=== PATIENT | female | born 2000 | race Caucasian/White ===

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

== ENCOUNTER 2018-03-26 12:27 | Emergency (ER) | payer BC, OTHER ==
[~2018-03-26] VITALS: Ht 170.2 cm; Wt 59.0 kg
--- OUTSIDE RECORDS SUMMARY | 2018-03-26 12:31 | XMS REPORT ---
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 Drug Allergy Lexapro 20 Mg Tablet rash Non Drug Allergy Problems Problem Type Condition Code Onset Dates Condition Status Problem Migraine with aura, without mention of intractable migraine without mention of status migrainosus 346.00 Active Assessment Nasal congestion R09.81 Active Problem Anxiety state, unspecified 300.00 Active Problem Encounter for long-term (current) use of other medications V58.69 Active Problem Asthma 493.90 Active Problem Chest pain, unspecified 786.50 Active 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 Problem Esophageal reflux 530.81 Active Problem 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 Medications Medication Code System Code Instructions Start Date End Date Status Dosage Flonase Allergy Relief [facility] [place] [address]-27 50 MCG/ACT Nasally twice a day prn nasal sx Jan 23, 2016 1 spray in each nostril BusPIRone HCl [facility] [place] [id number] 5 MG TAKE 1 TABLET BY ORAL ROUTE 2 TIMES PER DAY BusPIRone HCl [facility] [place] [address]-03 10 MG Orally Three times a day August 11, 2014 1 tablet Procedures Procedure Coding System Code Date Office Visit, Est Pt., Level 3 CPT-4 14410 Jan 23, 2016 Vital Signs Date/Time: Jan 23, 2016 Cardiac Monitoring Heart Rate 82 bpm BMIPercentile 51.95 % Weight 134.8 lbs Height 67 in BMI 21.11 Index Oximetry 99 % Blood Pressure Diastolic 68 mmHg Blood Pressure Systolic 118 mmHg Wt Percentile 71.45 % Ht Percentile 86.78 % Results No Known Results Summary Purpose eClinicalWorks Submission
--- OUTSIDE RECORDS SUMMARY | 2018-03-26 12:31 | XMS REPORT | Continuity of Care Document ---
Author Author [facility] Organization [facility] Address Unknown Phone Unavailable Care Team Providers Care Lock Tender Chief Operator Name Role Phone ELIZABETH LEIVA MD PP Insurance Providers Payer Name Policy Number Subscriber Name Relationship [employer] [facility] [id number] Denis Holland Self / Same As Patient Problems No Known Problems or Medical conditions. 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 Ref. Range Urine Bacteria November 06, 2007 2:39am Few H - Urine Bilirubin November 06, 2007 2:39am Negative - Urine Casts November 06, 2007 2:39am None - Urine Clarity November 06, 2007 2:39am Clear - Urine Color November 06, 2007 2:39am Yellow - Urine Crystals November 06, 2007 2:39am None - Urine Culture Indicated November 06, 2007 2:39am Yes - Urine Glucose (UA) November 06, 2007 2:39am Negative - Urine Ketones November 06, 2007 2:39am Negative - Urine Leukocyte Esterase November 06, 2007 2:39am 1+ H - Urine Mucus November 06, 2007 2:39am Negative - Urine Nitrite November 06, 2007 2:39am Negative - Urine Protein November 06, 2007 2:39am Negative - Urine RBC November 06, 2007 2:39am None / HPF - Urine Specific Roberts November 06, 2007 2:39am 1.020 - Urine Urobilinogen November 06, 2007 2:39am Normal MG/DL - Urine WBC November 06, 2007 2:39am 5-10 / HPF H - Urine pH November 06, 2007 2:39am 6.5 - Lab Scanned Report October 16, 2010 12:40pm LAB Reports [id number] - Urine RBC (Auto) November 06, 2007 2:39am Negative - Procedures Procedure Code Date Urine Culture 11/06/07 Encounters Encounter Location Date/Time Departed Emergency Room [facility] 12 :00am
--- OUTSIDE RECORDS SUMMARY | 2018-03-26 12:32 | XMS REPORT | Continuity of Care Document ---
Author Author [facility] Organization [facility] Address Unknown Phone Unavailable Care Team Providers Care Ledger Clerk Name Role Phone PATEL BOYD PA-C PP Insurance Providers Payer Name Policy Number Subscriber Name [facility] [id number] Joellen Holland Self / Same As Patient Problems No Known Problems or Medical conditions. 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 Encounters Encounter Location Date/Time Departed [facility] 12 :00am
--- OUTSIDE RECORDS SUMMARY | 2018-03-26 12:32 | XMS REPORT | Continuity of Care Document ---
Author Author [facility] Address Unknown Phone Unavailable Allergies Active Description Code Type Severity Reaction Onset Reported/Identified Relationship to Patient Clinical Status Yes sudafed OA 04/06/2009 Yes sudafed OA N/A N/ A 04/06/2009 Yes pseudoephedrine [id number] Drug Allergy Mild RECOMMENDED TO 06/17/2009 Yes Lexapro 20 mg tablet Drug Allergy N/A N/A 06/22/2014 Medications There is no data. Problems Date Dx Coded Attending Type Code Diagnosis Diagnosed By 01/17/2008 692.9 DERMATITIS CONTACT UNSPECIFIED 01/17/2008 ELIZABETH LEIVA MD 692.9 DERMATITIS CONTACT UNSPECIFIED 01/17/2008 692.9 DERMATITIS CONTACT UNSPECIFIED 01/17/2008 692.9 DERMATITIS CONTACT UNSPECIFIED 01/17/2008 692.9 DERMATITIS CONTACT UNSPECIFIED 01/17/2008 692.9 DERMATITIS CONTACT UNSPECIFIED 01/17/2008 692.9 DERMATITIS CONTACT UNSPECIFIED 01/17/2008 SWAPNA MILLER DO 692.9 DERMATITIS CONTACT UNSPECIFIED 01/17/2008 LUKE MIRANDA APRN 692.9 DERMATITIS CONTACT UNSPECIFIED 01/17/2008 ELIZABETH LEIVA MD 692.9 DERMATITIS CONTACT UNSPECIFIED 01/17/2008 ELIZABETH LEIVA MD 692.9 DERMATITIS CONTACT UNSPECIFIED 01/17/2008 CALI JAQUEZ ELIZABETH 692.9 DERMATITIS CONTACT UNSPECIFIED 01/17/2008 CALI JAQUEZ ELIZABETH 692.9 DERMATITIS CONTACT UNSPECIFIED 01/17/2008 ELIZABETH LEIVA MD 692.9 DERMATITIS CONTACT UNSPECIFIED 04/06/2009 709.9 SKIN LESIONS 04/06/2009 ELIZABETH LEIVA MD 709.9 SKIN LESIONS 04/06/2009 709.9 SKIN LESIONS 04/06/2009 709.9 SKIN LESIONS 04/06/2009 709.9 SKIN LESIONS 04/06/2009 709.9 SKIN LESIONS 04/06/2009 709.9 SKIN LESIONS 04/06/2009 SWAPNA MILLER DO 709.9 SKIN LESIONS 04/06/2009 LUKE MIRANDA APRN 709.9 SKIN LESIONS 04/06/2009 CALI JAQUEZ, ELIZABETH 709.9 SKIN LESIONS 04/06/2009 CALI JAQUEZ, ELIZABETH 709.9 SKIN LESIONS 04/06/2009 CALI JAQUEZ, ELIZABETH 709.9 SKIN LESIONS 04/06/2009 CALI JAQUEZ, ELIZABETH 709.9 SKIN LESIONS 04/06/2009 CALI JAQUEZ, ELIZABETH 709.9 SKIN LESIONS 09/11/2011 216.9 BENIGN NEOPLASM OF SKIN SITE UNSPECIFIED 09/11/2011 346.00 MIGRAINE WITH AURA WITHOUT MENTION OF INTRACTABLE MIGRAINE WITHOUT MENTION OF STATUS MIGRAINOSUS 09/11/2011 ELIZABETH LEIVA MD 216.9 BENIGN NEOPLASM OF SKIN SITE UNSPECIFIED 09/11/2011 ELIZABETH LEIVA MD 346.00 MIGRAINE WITH AURA WITHOUT MENTION OF INTRACTABLE MIGRAINE WITHOUT MENTION OF STATUS MIGRAINOSUS 09/11/2011 216.9 BENIGN NEOPLASM OF SKIN SITE UNSPECIFIED 09/11/2011 346.00 MIGRAINE WITH AURA WITHOUT MENTION OF INTRACTABLE MIGRAINE WITHOUT MENTION OF STATUS MIGRAINOSUS 09/11/2011 216.9 BENIGN NEOPLASM OF SKIN SITE UNSPECIFIED 09/11/2011 346.00 MIGRAINE WITH AURA WITHOUT MENTION OF INTRACTABLE MIGRAINE WITHOUT MENTION OF STATUS MIGRAINOSUS 09/11/2011 216.9 BENIGN NEOPLASM OF SKIN SITE UNSPECIFIED 09/11/2011 346.00 MIGRAINE WITH AURA WITHOUT MENTION OF INTRACTABLE MIGRAINE WITHOUT MENTION OF STATUS MIGRAINOSUS 09/11/2011 216.9 BENIGN NEOPLASM OF SKIN SITE UNSPECIFIED 09/11/2011 346.00 MIGRAINE WITH AURA WITHOUT MENTION OF INTRACTABLE MIGRAINE WITHOUT MENTION OF STATUS MIGRAINOSUS 09/11/2011 216.9 BENIGN NEOPLASM OF SKIN SITE UNSPECIFIED 09/11/2011 346.00 MIGRAINE WITH AURA WITHOUT MENTION OF INTRACTABLE MIGRAINE WITHOUT MENTION OF STATUS MIGRAINOSUS 09/11/2011 SWAPNA MILLER DO 216.9 BENIGN NEOPLASM OF SKIN SITE UNSPECIFIED 09/11/2011 SWAPNA MILLER DO 346.00 MIGRAINE WITH AURA WITHOUT MENTION OF INTRACTABLE MIGRAINE WITHOUT MENTION OF STATUS MIGRAINOSUS 09/11/2011 LUKE MIRANDA APRN 216.9 BENIGN NEOPLASM OF SKIN SITE UNSPECIFIED 09/11/2011 LUKE MIRANDA APRN 346.00 MIGRAINE WITH AURA WITHOUT MENTION OF INTRACTABLE MIGRAINE WITHOUT MENTION OF STATUS MIGRAINOSUS 09/11/2011 ELIZABETH LEIVA MD 216.9 BENIGN NEOPLASM OF SKIN SITE UNSPECIFIED 09/11/2011 ELIZABETH LEIVA MD 346.00 MIGRAINE WITH AURA WITHOUT MENTION OF INTRACTABLE MIGRAINE WITHOUT MENTION OF STATUS MIGRAINOSUS 09/11/2011 ELIZABETH LEIVA MD 216.9 BENIGN NEOPLASM OF SKIN SITE UNSPECIFIED 09/11/2011 ELIZABETH LEIVA MD 346.00 MIGRAINE WITH AURA WITHOUT MENTION OF INTRACTABLE MIGRAINE WITHOUT MENTION OF STATUS MIGRAINOSUS 09/11/2011 ELIZABETH LEIVA MD 216.9 BENIGN NEOPLASM OF SKIN SITE UNSPECIFIED 09/11/2011 ELIZABETH LEIVA MD 346.00 MIGRAINE WITH AURA WITHOUT MENTION OF INTRACTABLE MIGRAINE WITHOUT MENTION OF STATUS MIGRAINOSUS 09/11/2011 ELIZABETH LEIVA MD 216.9 BENIGN NEOPLASM OF SKIN SITE UNSPECIFIED 09/11/2011 ELIZABETH LEIVA MD 346.00 MIGRAINE WITH AURA WITHOUT MENTION OF INTRACTABLE MIGRAINE WITHOUT MENTION OF STATUS MIGRAINOSUS 09/11/2011 ELIZABETH LEIVA MD 216.9 BENIGN NEOPLASM OF SKIN SITE UNSPECIFIED 09/11/2011 ELIZABETH LEIVA MD 346.00 MIGRAINE WITH AURA WITHOUT MENTION OF INTRACTABLE MIGRAINE WITHOUT MENTION OF STATUS MIGRAINOSUS 05/13/2012 ELIZABETH LEIVA MD 426.7 ANOMALOUS ATRIOVENTRICULAR EXCITATION 05/13/2012 ELIZABETH LEIVA MD 465.9 UPPER RESPIRATORY INFECTION 05/13/2012 ELIZABETH LEIVA MD 786.50 chest pain or discomfort 05/13/2012 426.7 ANOMALOUS ATRIOVENTRICULAR EXCITATION 05/13/2012 465.9 UPPER RESPIRATORY INFECTION 05/13/2012 786.50 chest pain or discomfort 05/13/2012 426.7 ANOMALOUS ATRIOVENTRICULAR EXCITATION 05/13/2012 465.9 UPPER RESPIRATORY INFECTION 05/13/2012 786.50 chest pain or discomfort 05/13/2012 426.7 ANOMALOUS ATRIOVENTRICULAR EXCITATION 05/13/2012 465.9 UPPER RESPIRATORY INFECTION 05/13/2012 786.50 chest pain or discomfort 05/13/2012 426.7 ANOMALOUS ATRIOVENTRICULAR EXCITATION 05/13/2012 465.9 UPPER RESPIRATORY INFECTION 05/13/2012 786.50 chest pain or discomfort 05/13/2012 426.7 ANOMALOUS ATRIOVENTRICULAR EXCITATION 05/13/2012 465.9 UPPER RESPIRATORY INFECTION 05/13/2012 786.50 chest pain or discomfort 05/13/2012 MILLER DO, SWAPNA K 426.7 ANOMALOUS ATRIOVENTRICULAR EXCITATION 05/13/2012 MILLER DO, SWAPNA K 465.9 UPPER RESPIRATORY INFECTION 05/13/2012 MILLER DO, SWAPNA K 786.50 chest pain or discomfort 05/13/2012 LUKE MIRANDA APRN T 426.7 ANOMALOUS ATRIOVENTRICULAR EXCITATION 05/13/2012 LUKE MIRANDA APRN T 465.9 UPPER RESPIRATORY INFECTION 05/13/2012 LUKE MIRANDA APRN T 786.50 chest pain or discomfort 05/13/2012 ELIZABETH LEIVA MD 426.7 ANOMALOUS ATRIOVENTRICULAR EXCITATION 05/13/2012 ELIZABETH LEIVA MD 465.9 UPPER RESPIRATORY INFECTION 05/13/2012 ELIZABETH LEIVA MD 786.50 chest pain or discomfort 05/13/2012 ELIZABETH LEIVA MD 426.7 ANOMALOUS ATRIOVENTRICULAR EXCITATION 05/13/2012 RAH LEIVA MDISTA 465.9 UPPER RESPIRATORY INFECTION 05/13/2012 ELIZABETH LEIVA MD 786.50 chest pain or discomfort 05/13/2012 ELIZABETH LEIVA MD 426.7 ANOMALOUS ATRIOVENTRICULAR EXCITATION 05/13/2012 CALI JAQUEZ ELIZABETH 465.9 UPPER RESPIRATORY INFECTION 05/13/2012 ELIZABETH LEIVA MD 786.50 chest pain or discomfort 05/13/2012 ELIZABETH LEIVA MD 426.7 ANOMALOUS ATRIOVENTRICULAR EXCITATION 05/13/2012 CALI JAQUEZ ELIZABETH 465.9 UPPER RESPIRATORY INFECTION 05/13/2012 ELIZABETH LEIVA MD 786.50 chest pain or discomfort 05/13/2012 ELIZABETH LEIVA MD 426.7 ANOMALOUS ATRIOVENTRICULAR EXCITATION 05/13/2012 RAH LEIVA MDISTA 465.9 UPPER RESPIRATORY INFECTION 05/13/2012 CALI JAQUEZ ELIZABETH 786.50 chest pain or discomfort 07/07/2012 719.46 PAIN IN JOINT INVOLVING LOWER LEG 07/07/2012 754.61 CONGENITAL PES PLANUS 07/07/2012 719.46 PAIN IN JOINT INVOLVING LOWER LEG 07/07/2012 754.61 CONGENITAL PES PLANUS 07/07/2012 719.46 PAIN IN JOINT INVOLVING LOWER LEG 07/07/2012 754.61 CONGENITAL PES PLANUS 07/07/2012 719.46 PAIN IN JOINT INVOLVING LOWER LEG 07/07/2012 754.61 CONGENITAL PES PLANUS 07/07/2012 719.46 PAIN IN JOINT INVOLVING LOWER LEG 07/07/2012 754.61 CONGENITAL PES PLANUS 07/07/2012 SWAPNA MILLER DO 719.46 PAIN IN JOINT INVOLVING LOWER LEG 07/07/2012 SWAPNA MILLER DO 754.61 CONGENITAL PES PLANUS 07/07/2012 LUKE MIRANDA APRN 719.46 PAIN IN JOINT INVOLVING LOWER LEG 07/07/2012 LUKE MIRANDA APRN 754.61 CONGENITAL PES PLANUS 07/07/2012 ELIZABETH LEIVA MD 719.46 PAIN IN JOINT INVOLVING LOWER LEG 07/07/2012 CALI JAQUEZ ELIZABETH 754.61 CONGENITAL PES PLANUS 07/07/2012 ELIZABETH LEIVA MD 719.46 PAIN IN JOINT INVOLVING LOWER LEG 07/07/2012 RAH LEIVA MDISTA 754.61 CONGENITAL PES PLANUS 07/07/2012 CALI JAQUEZ ELIZABETH 719.46 PAIN IN JOINT INVOLVING LOWER LEG 07/07/2012 CALI JAQUEZ ELIZABETH 754.61 CONGENITAL PES PLANUS 07/07/2012 CALI JAQUEZ ELIZABETH 719.46 PAIN IN JOINT INVOLVING LOWER LEG 07/07/2012 CALI JAQUEZ ELIZABETH 754.61 CONGENITAL PES PLANUS 07/07/2012 CALI JAQUEZ ELIZABETH 719.46 PAIN IN JOINT INVOLVING LOWER LEG 07/07/2012 CALI JAQUEZ ELIZABETH 754.61 CONGENITAL PES PLANUS 09/17/2012 840.9 SPRAIN OF UNSPECIFIED SITE OF SHOULDER AND UPPER ARM 09/17/2012 840.9 SPRAIN OF UNSPECIFIED SITE OF SHOULDER AND UPPER ARM 09/17/2012 840.9 SPRAIN OF UNSPECIFIED SITE OF SHOULDER AND UPPER ARM 09/17/2012 840.9 SPRAIN OF UNSPECIFIED SITE OF SHOULDER AND UPPER ARM 09/17/2012 SWAPNA MILLER DO 840.9 SPRAIN OF UNSPECIFIED SITE OF SHOULDER AND UPPER ARM 09/17/2012 LUKE MIRANDA APRN 840.9 SPRAIN OF UNSPECIFIED SITE OF SHOULDER AND UPPER ARM 09/17/2012 ELIZABETH LEIVA MD 840.9 SPRAIN OF UNSPECIFIED SITE OF SHOULDER AND UPPER ARM 09/17/2012 ELIZABETH LEIVA MD 840.9 SPRAIN OF UNSPECIFIED SITE OF SHOULDER AND UPPER ARM 09/17/2012 ELIZABETH LEIVA MD 840.9 SPRAIN OF UNSPECIFIED SITE OF SHOULDER AND UPPER ARM 09/17/2012 ELIZABETH LEIVA MD 840.9 SPRAIN OF UNSPECIFIED SITE OF SHOULDER AND UPPER ARM 09/17/2012 ELIZABETH LEIVA MD 840.9 SPRAIN OF UNSPECIFIED SITE OF SHOULDER AND UPPER ARM 11/04/2012 530.81 ESOPHAGEAL REFLUX 11/04/2012 780.2 PRESYNCOPE SYNDROME 11/04/2012 530.81 ESOPHAGEAL REFLUX 11/04/2012 780.2 PRESYNCOPE SYNDROME 11/04/2012 SWAPNA MILLER DO 530.81 ESOPHAGEAL REFLUX 11/04/2012 SWAPNA MILLER DO 780.2 PRESYNCOPE SYNDROME 11/04/2012 LUKE MIRANDA APRN 530.81 ESOPHAGEAL REFLUX 11/04/2012 LUKE MIRANDA APRN 780.2 PRESYNCOPE SYNDROME 11/04/2012 ELIZABETH LEIVA MD 530.81 ESOPHAGEAL REFLUX 11/04/2012 ELIZABETH LEIVA MD 780.2 PRESYNCOPE SYNDROME 11/04/2012 ELIZABETH LEIVA MD 530.81 ESOPHAGEAL REFLUX 11/04/2012 ELIZABETH LEIVA MD 780.2 PRESYNCOPE SYNDROME 11/04/2012 ELIZABETH LEIVA MD 530.81 ESOPHAGEAL REFLUX 11/04/2012 ELIZABETH LEIVA MD 780.2 PRESYNCOPE SYNDROME 11/04/2012 ELIZABETH LEIVA MD 530.81 ESOPHAGEAL REFLUX 11/04/2012 ELIZABETH LEIVA MD 780.2 PRESYNCOPE SYNDROME 11/04/2012 ELIZABETH LEIVA MD 530.81 ESOPHAGEAL REFLUX 11/04/2012 ELIZABETH LEIVA MD 780.2 PRESYNCOPE SYNDROME 02/28/2013 SWAPNA MILLER DO V04.81 FLU SHOT 02/28/2013 LUKE MIRANDA APRN V04.81 FLU SHOT 02/28/2013 CALI JAQUEZ ELIZABETH V04.81 FLU SHOT 02/28/2013 CALI JAQUEZ ELIZABETH V04.81 FLU SHOT 02/28/2013 RAH LEIVA MDISTA V04.81 FLU SHOT 02/28/2013 ELIZABETH LEIVA MD V04.81 FLU SHOT 02/28/2013 CALI JAQUEZ, ELIZABETH V04.81 FLU SHOT 02/28/2014 CALI JAQUEZ, ELIZABETH 300.00 ANXIETY STATE UNSPECIFIED 02/28/2014 CALI JAQUEZ, ELIZABETH 780.79 OTHER MALAISE AND FATIGUE 02/28/2014 CALI JAQUEZ ELIZABETH V58.69 MEDICATION HIGH RISK 02/28/2014 CALI JAQUEZ, ELIZABETH 300.00 ANXIETY STATE UNSPECIFIED 02/28/2014 CALI JAQUEZ, ELIZABETH 780.79 OTHER MALAISE AND FATIGUE 02/28/2014 CALI JAQUEZ, ELIZABETH V58.69 MEDICATION HIGH RISK 02/28/2014 CALI JAQUEZ, ELIZABETH 300.00 ANXIETY STATE UNSPECIFIED 02/28/2014 CALI JAQUEZ, ELIZABETH 780.79 OTHER MALAISE AND FATIGUE 02/28/2014 CALI JAQUEZ, ELIZABETH V58.69 MEDICATION HIGH RISK 02/28/2014 CALI JAQUEZ, ELIZABETH 300.00 ANXIETY STATE UNSPECIFIED 02/28/2014 CALI JAQUEZ ELIZABETH 780.79 OTHER MALAISE AND FATIGUE 02/28/2014 CALI JAQUEZ, ELIZABETH V58.69 MEDICATION HIGH RISK 02/28/2014 CALI JAQUEZ, ELIZABETH 300.00 ANXIETY STATE UNSPECIFIED 02/28/2014 CALI JAQUEZ, ELIZABETH 780.79 OTHER MALAISE AND FATIGUE 02/28/2014 CALI JAQUEZ, ELIZABETH V58.69 MEDICATION HIGH RISK 05/25/2014 CALI JAQUEZ, ELIZABETH 696.3 PITYRIASIS ROSEA 05/25/2014 CALI JAQUEZ, ELIZABETH 696.3 PITYRIASIS ROSEA 05/25/2014 CALI JAQUEZ, ELIZABETH 696.3 PITYRIASIS ROSEA 06/22/2014 CALI JAQUEZ, ELIZABETH 695.10 ERYTHEMA MULTIFORME UNSPECIFIED 06/22/2014 CALI JAQUEZ, ELIZABETH 695.10 ERYTHEMA MULTIFORME UNSPECIFIED 06/22/2014 CALI JAQUEZ, ELIZABETH 695.10 ERYTHEMA MULTIFORME UNSPECIFIED 07/06/2014 CALI JAQUEZ, ELIZABETH 701.4 KELOID SCAR 07/06/2014 CALI JAQUEZ, ELIZABETH 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.4 KELOID SCAR 07/19/2014 CALI JAQUEZ, ELIZABETH 599.0 URINARY TRACT INFECTION 07/19/2014 CALI JAQUEZ, ELIZABETH 788.1 DYSURIA 09/08/2017 BENNY ROCK MD Ot E86.9 VOLUME DEPLETION, UNSPECIFIED 09/08/2017 BENNY ROCK MD, Ot R11.0 NAUSEA 09/08/2017 BENNY ROCK MD Ot R42 DIZZINESS AND GIDDINESS 09/08/2017 BENNY ROCK MD Ot R51 HEADACHE 10/02/2017 BENNY ROCK MD, Ot E86.9 VOLUME DEPLETION, UNSPECIFIED 10/02/2017 BENNY ROCK MD, Ot R11.0 NAUSEA 10/02/2017 BENNY ROCK MD, Ot R42 DIZZINESS AND GIDDINESS 10/02/2017 BENNY ROCK MD, Ot R51 HEADACHE Procedures Code Description Performed By Performed On Physical Physical Therapy, [facility] 07/08/2012 47822 XRAY SHOULDER RIGHT COMP 2 VIEWS 09/17/2012 40322 ROUTINE VENIPUNCTURE 11/04/2012 84981 BMP 11/04/2012 1798748 COMPLETE BLOOD COUNT NO DIFF (CBC Result) 11/04/2012 08598 TSH 11/04/2012 62397 T4 FREE 11/04/2012 86440 DIFFERENTIAL WBC COUNT (CBC DIFF RESULT) 11/05/2012 95554 UA W/MICROSCOPY 11/05/2012 73891 CBC W/MANUAL DIF (order) 11/07/2012 64350 UA W/MICROSCOPY 11/23/2012 PRO/CRE URINE PROTEIN TO CREATNINE RATIO 11/23/2012 83750 SKIN TAG REM 1-15 04/20/2013 37151 ROUTINE VENIPUNCTURE 02/28/2014 77044 STREP A (IN-HOUSE) 02/28/2014 69140 MONO TEST (IN-HOUSE) 02/28/2014 62389 CBC NO 5 PART DIFFERENTIAL 03/01/2014 44219 IRON SERUM 03/01/2014 11047 IRON BNDNG CAP 03/01/2014 30864 T4 FREE 03/01/2014 33509 FERRITIN 03/01/2014 05733 TSH 03/01/2014 IRGROUP IRON GROUP (Iron,TIBC, Ferritin) 03/04/2014 34862 UA W/ CULTURE IF INDICATED 07/19/2014 GC/CHLAM GC/CHLAMYDIA PROBE/URINE 07/19/2014 Results Test Result Range Urine beta human chorionic gonadotropin (hCG) measurement - 09/08/17 16:25 Urine beta human chorionic gonadotropin (hCG) measurement NEGATIVE NEGATIVE Complete urinalysis with reflex to culture - 09/08/17 16:25 Urine color determination YELLOW NRG Urine clarity determination CLEAR NRG Urine pH measurement by test strip 6 5-9 Specific gravity of urine by test strip 1.015 1.016- 1.022 Urine protein assay by test strip, semi-quantitative NEGATIVE NEGATIVE Urine glucose detection by automated test strip NEGATIVE NEGATIVE Erythrocytes detection in urine sediment by light microscopy 5+ NEGATIVE Urine ketones detection by automated test strip NEGATIVE NEGATIVE Urine nitrite detection by test strip NEGATIVE NEGATIVE Urine total bilirubin detection by test strip NEGATIVE NEGATIVE Urine urobilinogen measurement by automated test strip (mass/volume) NORMAL NORMAL Urine leukocyte esterase detection by dipstick NEGATIVE NEGATIVE Automated urine sediment erythrocyte count by microscopy (number/high power field) [HPF] NRG Automated urine sediment leukocyte count by microscopy (number/high power field ) NONE NRG Bacteria detection in urine sediment by light microscopy NONE NRG Squamous epithelial cells detection in urine sediment by light microscopy 2-5 NRG Crystals detection in urine sediment by light microscopy NONE NRG Casts detection in urine sediment by light microscopy NONE NRG Mucus detection in urine sediment by light microscopy NEGATIVE NRG Complete urinalysis with reflex to culture NO NRG Complete blood count (CBC) with automated white blood cell (WBC) differential - 09/08/17 16:40 Blood leukocytes automated count (number/volume) 7.7 10*3/uL 4.3-11.0 Blood erythrocytes automated count (number/volume) 4.15 10*6/uL 4.35-5.85 Venous blood hemoglobin measurement (mass/volume) 13.2 g/dL 11.5-16.0 Blood hematocrit (volume fraction) 37 % 35-52 Automated erythrocyte mean corpuscular volume 90 [foz_us] 80-99 Automated erythrocyte mean corpuscular hemoglobin (mass per erythrocyte) 32 pg 25-34 Automated erythrocyte mean corpuscular hemoglobin concentration measurement ( mass/volume) 36 g/dL 32-36 Automated erythrocyte distribution width ratio 12.5 % 10.0-14.5 Automated blood platelet count (count/volume) 179 10*3/uL 130-400 Automated blood platelet mean volume measurement 11.0 [foz_us] 7.4-10.4 Automated blood neutrophils/100 leukocytes 63 % 42-75 Automated blood lymphocytes/100 leukocytes 28 % 12-44 Blood monocytes/100 leukocytes 6 % 0-12 Automated blood eosinophils/100 leukocytes 2 % 0-10 Automated blood basophils/100 leukocytes 0 % 0-10 Blood neutrophils automated count (number/volume) 4.9 10*3 1.8-7.8 Blood lymphocytes automated count (number/volume) 2.2 10*3 1.0-4.0 Blood monocytes automated count (number/volume) 0.5 10*3 0.0-1.0 Automated eosinophil count 0.2 10*3/uL 0.0-0.3 Automated blood basophil count (count/volume) 0.0 10*3/uL 0.0-0.1 Comprehensive metabolic panel - 09/08/17 16:40 Serum or plasma sodium measurement (moles/volume) 140 mmol/L 135-145 Serum or plasma potassium measurement (moles/volume) 3.7 mmol/L 3.6-5.0 Serum or plasma chloride measurement (moles/volume) 109 mmol/L 98-107 Carbon dioxide 22 mmol/L 21-32 Serum or plasma anion gap determination (moles/volume) 9 mmol/L 5-14 Serum or plasma urea nitrogen measurement (mass/volume) 13 mg/dL 7-18 Serum or plasma creatinine measurement (mass/volume) 0.77 mg/dL 0.60-1.30 Serum or plasma urea nitrogen/creatinine mass ratio 17 NRG Serum or plasma creatinine measurement with calculation of estimated glomerular filtration rate > NRG Serum or plasma glucose measurement (mass/volume) 86 mg/dL 70-105 Serum or plasma calcium measurement (mass/volume) 9.1 mg/dL 8.5-10.1 Serum or plasma total bilirubin measurement (mass/volume) 0.5 mg/dL 0.1-1.0 Serum or plasma alkaline phosphatase measurement (enzymatic activity/volume) 58 U/L 60-350 Serum or plasma aspartate aminotransferase measurement (enzymatic activity/ volume) 15 U/L 5-34 Serum or plasma alanine aminotransferase measurement (enzymatic activity/volume ) 13 U/L 0-55 Serum or plasma protein measurement (mass/volume) 6.9 g/dL 6.4-8.2 Serum or plasma albumin measurement (mass/volume) 4.1 g/dL 3.2-4.5 Serum or plasma creatine kinase measurement (enzymatic activity/volume) - 09/08 16:40 Serum or plasma creatine kinase measurement (enzymatic activity/volume) 56 U/L 29-168 Lipase - 09/08/17 16:40 Lipase 41 U/L 8-78 Encounters ACCT No. Visit Date/Time Discharge Status Pt. Type Provider Facility Loc./Unit Complaint [id number] 07/19/2014 15:13:00 07/19/2014 23:59:59 CLS Outpatient ELIZABETH LEIVA MD [id number] 07/06/2014 16:00:00 07/06/2014 23:59:59 CLS Outpatient ELIZABETH LEIVA MD [id number] 06/22/2014 15:18:00 06/22/2014 23:59:59 CLS Outpatient ELIZABETH LEIVA MD [id number] 03/21/2014 16:30:00 03/21/2014 23:59:59 CLS Outpatient ELIZABETH LEIVA MD [id number] 02/28/2014 16:43:00 02/28/2014 23:59:59 CLS Outpatient ELIZABETH LEIVA MD [id number] 04/20/2013 16:12:00 04/20/2013 23:59:59 CLS Outpatient LUKE MIRANDA APRN [id number] 02/28/2013 17:21:00 02/28/2013 23:59:59 CLS Outpatient SWAPNA MILLER DO [id number] 05/13/2012 16:42:00 05/13/2012 23:59:59 CLS Outpatient ELIZABETH LEIVA MD [id number] 10/15/2011 14:31:00 10/15/2011 23:59:59 CLS Outpatient [id number] 11/22/2012 16:38:00 Document Registration [id number] 11/04/2012 11:13:00 Document Registration [id number] 09/21/2012 09:17:00 Document Registration [id number] 09/17/2012 16:24:00 Document Registration [id number] 07/07/2012 16:43:00 Document Registration [id number] 04/13/2012 19:22:54 RECURRING [id number] 09/08/2017 16:08:00 09/08/2017 17:45:00 DIS Outpatient PRANAV JAQUEZ, BENNY Castaneda [facility] SDC VOLUME DEPLETION,COUGH, NAUSEA,DOWELL [id number] 12/03/2012 16:21:00 12/09/2012 13:46:00 DIS Outpatient [id number] 09/17/2012 17:42:00 09/17/2012 23:59:59 CLS Outpatient [id number] 08/19/2012 15:17:00 08/19/2012 15:57:00 DIS Outpatient
[2018-03-26] MEDS ORDERED: CITA20TA9 (12:55)
[2018-03-26] MEDS ORDERED: NORE0.3543 (12:55)
[2018-03-26] MEDS ORDERED: MUPI22OI2 (12:55)
[2018-03-26] MEDS ORDERED: SULF-222 (12:55)
--- NOTE | 2018-03-26 13:07 | ED Pediatric Illness ---
HPI-Pediatric Illness General Chief Complaint: Abdominal/GI Problems Stated Complaint: VOMITING;ABD PAIN Nursing Triage Note: ARRIVED VIA AMB TO ROOM 08 WITH MOM. COMPLAINS OF ABD PAIN AND LOWER BACK PAIN STARTING YESTERDAY. Source: patient Exam Limitations: no limitations History of Present Illness Date Seen by Provider: Mar 26, 2018 Time Seen by Provider: 13:05 Initial Comments To ER with complaints of lower back pain, epigastric abdominal pain nausea vomiting and chills without measured fever for about 24 hours. She's been on an antibiotic (unknown which one) for about a week for an "staph infection of her lip". 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) Patient Home Medication List Home Medication List Reviewed: Yes Review of Systems Review of Systems Constitutional: see HPI EENTM: see HPI Respiratory: no symptoms reported Cardiovascular: no symptoms reported Gastrointestinal: abdominal pain; No constipation, No diarrhea; nausea, vomiting Genitourinary: no symptoms reported LMP: Mar 19, 2018 Musculoskeletal: no symptoms reported Skin: no symptoms reported Psychiatric/Neurological: No Symptoms Reported Endocrine: No Symptoms Reported PMH-Pediatrics Physical Abuse Screen: No Recent Foreign Travel: No Contact w/other who traveled: No Recent Infectious Disease Expo: No Seasonal Allergies: No Behavioral Health Disorders: Anxiety, Depression Physical Exam-Pediatric Physical Exam Vital Signs - First Documented 03/26/18 12:45 Temp 98.7 Pulse 89 Resp 16 B/P (MAP) 125/81 Capillary Refill : Height, Weight, BMI Height: 5'7.00" Weight: 130lbs. 0.0oz. 58.051539le; 14.06 BMI Method:Stated General Appearance: no acute distress, see HPI, active HENT: head inspection normal, fontanelle closed/normal Neck: non-tender, full range of motion Respiratory: no respiratory distress, no accessory muscle use Gastrointestinal: normal bowel sounds, non tender, soft Neurologic/Psychiatric: alert, normal mood/affect, oriented x 3 Skin: normal color, warm/dry Progress/Results/Core Measures Results/Orders Lab Results Laboratory Tests Test 03/26/18 13:00 03/26/18 13:10 03/26/18 15:03 Range/Units White Blood Count 5.4 4.3-11.0 10^3/uL Red Blood Count 4.80 4.35-5.85 10^6/uL Hemoglobin 14.7 11.5-16.0 G/DL Hematocrit 43 35-52 % Mean Corpuscular Volume 90 80-99 FL Mean Corpuscular Hemoglobin 31 25-34 PG Mean Corpuscular Hemoglobin Concent 34 32-36 G/DL Red Cell Distribution Width 12.4 10.0-14.5 % Platelet Count 186 130-400 10^3/uL Mean Platelet Volume 10.5 H 7.4-10.4 FL Neutrophils (%) (Auto) 75 42-75 % Lymphocytes (%) (Auto) 16 12-44 % Monocytes (%) (Auto) 9 0-12 % Eosinophils (%) (Auto) 0 0-10 % Basophils (%) (Auto) 0 0-10 % Neutrophils # (Auto) 4.1 1.8-7.8 X 10^3 Lymphocytes # (Auto) 0.9 L 1.0-4.0 X 10^3 Monocytes # (Auto) 0.5 0.0-1.0 X 10^3 Eosinophils # (Auto) 0.0 0.0-0.3 10^3/uL Basophils # (Auto) 0.0 0.0-0.1 10^3/uL Sodium Level 138 135-145 MMOL/L Potassium Level 3.5 L 3.6-5.0 MMOL/L Chloride Level 103 98-107 MMOL/L Carbon Dioxide Level 23 21-32 MMOL/L Anion Gap 12 5-14 MMOL/L Blood Urea Nitrogen 13 7-18 MG/DL Creatinine 0.80 0.60-1.30 MG/DL Estimat Glomerular Filtration Rate > 60 BUN/Creatinine Ratio 16 Glucose Level 90 70-105 MG/DL Calcium Level 9.5 8.5-10.1 MG/DL Corrected Calcium 9.2 8.5-10.1 MG/DL Total Bilirubin 0.8 0.1-1.0 MG/DL Aspartate Amino Transf (AST/SGOT) 18 5-34 U/L Alanine Aminotransferase (ALT/SGPT) 17 0-55 U/L Alkaline Phosphatase 69 40-136 U/L Total Protein 7.6 6.4-8.2 GM/DL Albumin 4.4 3.2-4.5 GM/DL Lipase 18 8-78 U/L Serum Test, Qualitative NEGATIVE NEGATIVE My Orders Orders - FLORENCIA MEREDITH APRN Cbc With Automated Diff (03/26/18 13:04) Comprehensive Metabolic Panel (03/26/18 13:04) Lipase (03/26/18 13:04) Ua Culture If Indicated (03/26/18 13:04) Hcg,Qualitative Serum (03/26/18 13:04) Iv Heplock-Insert (Order) (03/26/18 13:04) Hyoscyamine Sl Tablet (Levsin Sl Tablet) (03/26/18 13:15) Antacid Suspension (Mylanta Suspension (03/26/18 13:15) Lidocaine 2% Viscous 15 Ml (Xylocaine Vi (03/26/18 13:15) Ketorolac Injection (Toradol Injection) (03/26/18 13:15) Ns Iv 1000 Ml (Sodium Chloride 0.9%) (03/26/18 14:15) Medications Given in ED Current Medications Medications Dose Ordered Sig/Katia Route Start Time Stop Time Status Last Admin Dose Admin Al Hydrox/Mg Hydrox/Simethicone 30 ml ONCE ONCE PO 03/26/18 13:15 03/26/18 13:16 DC 03/26/18 13:24 30 ML Hyoscyamine Sulfate 0.125 mg ONCE ONCE PO 03/26/18 13:15 03/26/18 13:16 DC 03/26/18 13:23 0.125 MG Ketorolac Tromethamine 15 mg ONCE ONCE IVP 03/26/18 13:15 03/26/18 13:16 DC 03/26/18 13:23 15 MG Lidocaine HCl 10 ml ONCE ONCE PO 03/26/18 13:15 03/26/18 13:16 DC 03/26/18 13:27 10 ML Vital Signs/I&O 03/26/18 12:45 Temp 98.7 Pulse 89 Resp 16 B/P (MAP) 125/81 Departure Communication (Admissions) 1418- was improved with GI cocktail Toradol and Levsin. Still unable to urinate side ordered a liter of saline. Impression Primary Impression: Gastritis Qualified Codes: K29.00 - Acute gastritis without bleeding Disposition: 01 HOME, SELF-CARE Condition: Stable Departure-Patient Inst. Referrals: BENNY ROCK MD (PCP/Family) Primary Care Physician Patient Instructions: Gastritis (DC) Add. Discharge Instructions: 1. Take the aspirin for the next few days while you are finishing up your antibiotics. You may also use [id number] Maalox to help coat the stomach as needed for discomfort. Your labs are normal and it seems most likely that you 're discomfort is related to side effect of the antibiotic but it could also be a viral stomach bug as we've seen quite a bit of that going around. All discharge instructions reviewed with patient and/or family. Voiced understanding. Scripts Famotidine (Pepcid) 20 Mg Tablet 20 MG PO BID, #10 TAB Prov: FLORENCIA MEREDITH APRN 03/26/18 FLORENCIA MEREDITH APRN Mar 26, 2018 13:07
[2018-03-26] MEDS ORDERED: LIDOCAINE 2% VISCOUS 15 ML UDC PO ONE (13:15)
[2018-03-26] MEDS ORDERED: ANTACID SUSP 30 ML UDC (MYLANTA) PO ONE (13:15)
[2018-03-26] MEDS ORDERED: KETOROLAC 30 MG/ML VIAL IVP ONE (13:15)
[2018-03-26] MEDS ORDERED: HYOSCYAMINE 0.125 MG (LEVSIN) TAB PO ONE (13:15)
[2018-03-26 13:16] LABS: BASOPHILS % (AUTO) 0 % (0-10); EOSINOPHILS % (AUTO) 0 % (0-10); HEMATOCRIT 43 % (35-52); HEMOGLOBIN 14.7 G/DL (11.5-16.0); LYMPHOCYTES # (AUTO) 0.9 X 10^3 (1.0-4.0); LYMPHOCYTES % (AUTO) 16 % (12-44); MEAN CORPUSCULAR HEMOGLOBIN 31 PG (25-34); MEAN CORPUSCULAR HGB CONC 34 G/DL (32-36); MEAN CORPUSCULAR VOLUME 90 FL (80-99); MEAN PLATELET VOLUME 10.5 FL (7.4-10.4); MONOCYTES # (AUTO) 0.5 X 10^3 (0.0-1.0); MONOCYTES % (AUTO) 9 % (0-12); NEUTROPHILS # (AUTO) 4.1 X 10^3 (1.8-7.8); NEUTROPHILS % (AUTO) 75 % (42-75); PLATELET COUNT 186 10^3/uL (130-400); RED CELL DISTRIBUTION WIDTH 12.4 % (10.0-14.5); WHITE BLOOD COUNT 5.4 10^3/uL (4.3-11.0)
[2018-03-26 13:27] LABS: ALANINE AMINOTRANSFERASE 17 U/L (0-55); ALBUMIN 4.4 GM/DL (3.2-4.5); ALKALINE PHOSPHATASE 69 U/L (40-136); BILIRUBIN,TOTAL 0.8 MG/DL (0.1-1.0); BUN/CREATININE RATIO 16; CALCIUM 9.5 MG/DL (8.5-10.1); CARBON DIOXIDE 23 MMOL/L (21-32); CHLORIDE 103 MMOL/L (98-107); GFR ESTIMATED > 60; GLUCOSE 90 MG/DL (70-105); LIPASE 18 U/L (8-78); POTASSIUM 3.5 MMOL/L (3.6-5.0); SODIUM 138 MMOL/L (135-145); TOTAL PROTEIN 7.6 GM/DL (6.4-8.2)
[2018-03-26] MEDS ORDERED: NS IV 1000 ML 1,000 ML IV SCH (14:15)
[2018-03-26 15:09] LABS: CLARITY,URINE SLIGHTLY CLOUDY; COLOR,URINE AMBER; GLUCOSE, URINE (UA) NEGATIVE (NEGATIVE); KETONES,URINE 1+ (NEGATIVE); LEUKOCYTE ESTERASE ,URINE 1+ (NEGATIVE); NITRITE,URINE NEGATIVE (NEGATIVE); PH,URINE 5 (5-9); PROTEIN,URINE 2+ (NEGATIVE); UROBILINOGEN,URINE 1 MG/DL (NORMAL)
[2018-03-26] MEDS ORDERED: FAMO-119 PO (15:16)
[2018-03-26 15:34] LABS: BILIRUBIN,URINE 1+ (NEGATIVE)
[2018-03-26 15:35] LABS: BACTERIA,URINE MODERATE /HPF
== END 2018-03-26 15:51 | disposition home or self-care (01) ==
LOC: EDUNIT# 12:27 → ER 12:28
DX: K29.70 Gastritis, unspecified, without bleeding (principal); F41.9 Anxiety disorder, unspecified; F32.9 Major depressive disorder, single episode, unspecified; Z88.8 Allergy status to other drugs, medicaments and biological substances
CPT/HCPCS: 36415; 80053; 81000; 83690; 84703; 85025

== ENCOUNTER 2018-07-10 01:18 | Emergency (ER) | payer BC ==
[~2018-07-10] VITALS: Ht 170.2 cm; Wt 59.0 kg
[~2018-07-10 01:18] MED LIST: CITA20TA9; FAMO-119 PO; MUPI22OI2; NORE0.3543; SULF-222
--- OUTSIDE RECORDS SUMMARY | 2018-07-10 01:23 | XMS REPORT ---
Author Author Migration, Doctor Organization [facility] Address Unknown Phone Unavailable Care Team Providers Care Tong Setter Name Role Phone Migration, Doctor Unavailable Unavailable PROBLEMS Type Condition ICD9-CM Code BVM91-DT Code Onset Dates Condition Status SNOMED Code Problem Encounter for long-term (current) use of other medications V58.69 Active 068991055 Problem Chest pain, unspecified 786.50 Active 61925718 Problem Anxiety state, unspecified 300.00 Active 065835420 Problem Asthma 493.90 Active 646205955 Problem 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 74311678 Problem Esophageal reflux 530.81 Active 108307287 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 69403189 Problem Migraine with aura, without mention of intractable migraine without mention of status migrainosus 346.00 Active 7928972 ALLERGIES No Information ENCOUNTERS Encounter Location Date Diagnosis [facility] [address] [id number] Dec, Nasal congestion R09.81 [facility] [address] [address] Sep, Migraine headache 346.90 and Strain of left trapezius muscle 840.8 [facility] [address] [address] Aug, Depression, major 296.20 and Anxiety 300.00 [facility] [id number] [place] [id number] July, Asthma 493.90 [facility] [address] [address] July, Anxiety state, unspecified 300.00 and Major depression 296.20 [facility] [address] [address] July, High risk medication use V58.69 ; Depression with anxiety 300.4 and Asthma 493.90 [facility] [address] [facility] [id number] [place] [address] Jun, [facility] [place] [facility] [address] [facility] [id number] [place] [address] Jun, [facility] [place] [facility] [address] [facility] [id number], [place] [address] May, [facility] [place] [facility] [address] [facility] [id number], [place] [address] May, [facility] [place] [facility] [address] [facility] [id number] [place] [address] May, [facility] [place] [facility] [address] [facility] [id number] [place] [address] May, [facility] [place] [facility] [id number] [place] [address] Apr, [facility] [place] [facility] [address] [id number] [address] Apr, [facility] [place] [facility] [address] [id number] [place] [address] Apr, [facility] [place] [facility] [address], [place] [address] Apr, [facility] [place] [facility] [address] [address] Apr, [facility] [place] [facility] [address] [facility] [id number], [place] [address] Apr, [facility] [place] [facility] [id number] [address] Mar, [facility] [place] [facility] [id number] [address] Mar, [facility] [place] [facility] [address] [id number] [address] Feb, [facility] [place] [facility] [address] [place] [address] Feb, [facility] [address] [id number] [place] [address] Feb, [facility] [address] [id number] [place] Feb, [facility] [address] [id number] [place] [address] Feb, [facility] [address] [id number] [place] [address] Feb, [facility] [address] [id number] [place] [address] Feb, [facility] [address] [id number] [place] [address] Feb, [facility] [address] [id number] [place] [address] Mar, [facility] [address] [id number] [place] [address] Mar, [facility] [address] [id number] [place] [address] Feb, [facility] [address] [id number] [place] [address] Feb, [facility] [place] [facility] [address] [id number] [place] [address] Oct, [facility] [place] [facility] [address] [id number] [place] [address] Oct, [facility] [place] [facility] [address] [id number] [place] [address] Oct, [facility] [place] [facility] [address] [id number] [place] [address] Oct, [facility] [place] [facility] [address] [id number] [place] [address] Oct, [facility] [address] [address] Sep, [facility] [address], [place] [address] Aug, [facility] [address] [facility] [id number], [place] [address] Aug, [facility] [address], [place] [address] July, [facility] [id number] [address] Jun, [facility] [address], [place] [address] Apr, [facility] [address], [place] [address] Apr, [facility] [address], [place] [address] Mar, [facility] [address], [place] [address] Sep, [facility] [address], [place] [address] Aug, [facility] [address], [place] [address] Aug, [facility] [id number], [place] [address] Dec, IMMUNIZATIONS No Known Immunizations SOCIAL HISTORY Never Assessed REASON FOR VISIT EMR-[facility] PLAN OF CARE VITAL SIGNS MEDICATIONS No Known Medications RESULTS No Results PROCEDURES No Known procedures INSTRUCTIONS MEDICATIONS ADMINISTERED No Known Medications MEDICAL (GENERAL) HISTORY Type Description Date Medical History Anxiety Medical History Depression Medical History Asthma Medical History yancy parkinson white Surgical History catheter ablation 2007
--- OUTSIDE RECORDS SUMMARY | 2018-07-10 01:24 | XMS REPORT | Continuity of Care Document ---
Author Organization Unknown Address Unknown Allergies Active Description Code Type Severity Reaction Onset Reported/Identified Relationship to Patient Clinical Status Yes sudafed OA 04/06/2009 Yes sudafed OA N/A N/ A 04/06/2009 Yes pseudoephedrine [id number] Drug Allergy Mild RECOMMENDED TO 06/17/2009 Yes Lexapro 20 mg tablet Drug Allergy N/A N/A 06/22/2014 Medications There is no data. Problems Date Dx Coded Attending Type Code Diagnosis Diagnosed By 01/17/2008 692.9 DERMATITIS CONTACT UNSPECIFIED 01/17/2008 CALI JAQUEZ, ELIZABETH 692.9 DERMATITIS CONTACT UNSPECIFIED 01/17/2008 692.9 DERMATITIS CONTACT UNSPECIFIED 01/17/2008 692.9 DERMATITIS CONTACT UNSPECIFIED 01/17/2008 692.9 DERMATITIS CONTACT UNSPECIFIED 01/17/2008 692.9 DERMATITIS CONTACT UNSPECIFIED 01/17/2008 692.9 DERMATITIS CONTACT UNSPECIFIED 01/17/2008 SWAPNA MILLER DO 692.9 DERMATITIS CONTACT UNSPECIFIED 01/17/2008 LUKE MIRANDA APRN 692.9 DERMATITIS CONTACT UNSPECIFIED 01/17/2008 CALI JAQUEZ, ELIZABETH 692.9 DERMATITIS CONTACT UNSPECIFIED 01/17/2008 CALI JAQUEZ, ELIZABETH 692.9 DERMATITIS CONTACT UNSPECIFIED 01/17/2008 CALI JAQUEZ, ELIZABETH 692.9 DERMATITIS CONTACT UNSPECIFIED 01/17/2008 CALI AJQUEZ, ELIZABETH 692.9 DERMATITIS CONTACT UNSPECIFIED 01/17/2008 ELIZABETH LEIVA MD 692.9 DERMATITIS CONTACT UNSPECIFIED 04/06/2009 709.9 SKIN LESIONS 04/06/2009 CALI JAQUEZ, ELIZABETH 709.9 SKIN LESIONS 04/06/2009 709.9 SKIN LESIONS [...] MIGRAINE WITHOUT MENTION OF STATUS MIGRAINOSUS 09/11/2011 SWANPA MILLER DO 216.9 BENIGN NEOPLASM OF SKIN [...] pain or discomfort 05/13/2012 LUKE MIRANDA APRN 426.7 ANOMALOUS ATRIOVENTRICULAR EXCITATION 05/13/2012 LUKE MIRANDA [...] LEIVA MDISTA 465.9 UPPER RESPIRATORY INFECTION 05/13/2012 RAH LEIVA MDISTA 786.50 chest pain or discomfort 05/13/2012 ELIZABETH LEIVA MD 426.7 ANOMALOUS ATRIOVENTRICULAR EXCITATION 05/13/2012 RAH LEIVA MDISTA 465.9 UPPER RESPIRATORY INFECTION 05/13/2012 ELIZABETH LEIVA MD 786.50 chest pain or discomfort 07/07/2012 719.46 [...] PAIN IN JOINT INVOLVING LOWER LEG 07/07/2012 ELIZABETH LEIVA MD 754.61 CONGENITAL PES PLANUS 07/07/2012 CALI JAQUEZ [...] 780.2 PRESYNCOPE SYNDROME 11/04/2012 SWAPNA MILLER DO K 530.81 ESOPHAGEAL REFLUX 11/04/2012 SWAPNA MILLER DO K 780.2 PRESYNCOPE SYNDROME 11/04/2012 LUKE MIRANDA APRN 530.81 ESOPHAGEAL REFLUX 11/04/2012 LUKE MIRANDA APRN 780.2 PRESYNCOPE SYNDROME 11/04/2012 ELIZABETH LEIVA MD 530.81 ESOPHAGEAL REFLUX 11/04/2012 ELIZABETH LEIVA MD 780.2 PRESYNCOPE SYNDROME 11/04/2012 CALI JAQUEZ ELIZABETH 530.81 ESOPHAGEAL REFLUX 11/04/2012 ELIZABETH LEIVA MD 780.2 PRESYNCOPE SYNDROME 11/04/2012 ELIZABETH LEIVA MD 530.81 ESOPHAGEAL REFLUX 11/04/2012 ELIZABETH LEIVA MD 780.2 PRESYNCOPE SYNDROME 11/04/2012 ELIZABETH LEIVA MD 530.81 ESOPHAGEAL REFLUX 11/04/2012 ELIZABETH LEIVA MD 780.2 PRESYNCOPE SYNDROME 11/04/2012 ELIZABETH LEIVA MD 530.81 ESOPHAGEAL REFLUX 11/04/2012 ELIZABETH LEIVA MD 780.2 PRESYNCOPE SYNDROME 02/28/2013 SWAPNA MILLER DO K V04.81 FLU SHOT 02/28/2013 LUKE MIRANDA APRN V04.81 FLU SHOT 02/28/2013 CALI JAQUEZ ELIZABETH V04.81 FLU SHOT 02/28/2013 CALI JAQUEZ ELIZABETH V04.81 FLU SHOT 02/28/2013 CALI JAQUEZ, ELIZABETH V04.81 FLU SHOT 02/28/2013 CALI JAQUEZ ELIZABETH V04.81 FLU SHOT 02/28/2013 CALI MD, ELIZABETH V04.81 FLU SHOT 02/28/2014 CALI JAQUEZ, [...] E86.9 VOLUME DEPLETION, UNSPECIFIED 09/08/2017 BENNY ROCK MD Ot R11.0 NAUSEA 09/08/2017 BENNY ROCK MD Ot R42 DIZZINESS AND GIDDINESS 09/08/2017 BENNY ROCK MD Ot R51 HEADACHE 10/02/2017 BENNY ROCK MD Ot E86.9 VOLUME DEPLETION, UNSPECIFIED 10/02/2017 BENNY ROCK MD Ot R11.0 NAUSEA 10/02/2017 BENNY ROCK MD Ot R42 DIZZINESS AND GIDDINESS 10/02/2017 BENNY ROCK MD Ot R51 HEADACHE 03/26/2018 FLORENCIA MEREDITH APRN Ot F32.9 MAJOR DEPRESSIVE DISORDER, SINGLE EPISOD 03/26/2018 FLORENCIA MEREDITH APRN Ot F41.9 ANXIETY DISORDER, UNSPECIFIED 03/26/2018 FLORENCIA MEREDITH APRN Ot K29.70 GASTRITIS, UNSPECIFIED, WITHOUT BLEEDING 03/26/2018 FLORENCIA MEREDITH APRN Ot M54.5 LOW BACK PAIN 03/26/2018 FLORENCIA MEREDITH TRENCH DIGGING MACHINE OPERATOR Ot Z88.8 ALLERGY STATUS TO OTH DRUG/MEDS/BIOL SUB 03/29/2018 FLORENCIA MEREDITH APRN Ot F32.9 MAJOR DEPRESSIVE DISORDER, SINGLE EPISOD 03/29/2018 FLORENCIA MEREDITH APRN Ot F41.9 ANXIETY DISORDER, UNSPECIFIED 03/29/2018 FLORENCIA MEREDITH APRN Ot K29.70 GASTRITIS, UNSPECIFIED, WITHOUT BLEEDING 03/29/2018 FLORENCIA MEREDITH APRN Ot M54.5 LOW BACK PAIN 03/29/2018 FLORENCIA MEREDITH APRN Ot Z88.8 ALLERGY STATUS TO OTH DRUG/MEDS/BIOL SUB Procedures Code Description Performed By Performed On Physical Physical Therapy, [facility] 07/08/2012 18377 XRAY SHOULDER RIGHT COMP 2 VIEWS 09/17/2012 95325 ROUTINE VENIPUNCTURE 11/04/2012 03073 BMP 11/04/2012 8192308 COMPLETE BLOOD COUNT NO DIFF (CBC Result) 11/04/2012 99100 TSH 11/04/2012 45175 T4 FREE 11/04/2012 87864 DIFFERENTIAL WBC COUNT (CBC DIFF RESULT) 11/05/2012 72963 UA W/MICROSCOPY 11/05/2012 24904 CBC W/MANUAL DIF (order) 11/07/2012 85008 UA W/MICROSCOPY 11/23/2012 PRO/CRE URINE PROTEIN TO CREATNINE RATIO 11/23/2012 13023 SKIN TAG REM 1-15 04/20/2013 90413 ROUTINE VENIPUNCTURE 02/28/2014 25298 STREP A (IN-HOUSE) 02/28/2014 00958 MONO TEST (IN-HOUSE) 02/28/2014 52871 CBC NO 5 PART DIFFERENTIAL 03/01/2014 13080 IRON SERUM 03/01/2014 34411 IRON BNDNG CAP 03/01/2014 86013 T4 FREE 03/01/2014 88116 FERRITIN 03/01/2014 91566 TSH 03/01/2014 IRGROUP IRON GROUP (Iron,TIBC, Ferritin) 03/04/2014 08635 UA W/ CULTURE IF INDICATED 07/19/2014 GC/CHLAM [...] - 09/08/17 16:40 Lipase 41 U/L 8-78 Complete blood count (CBC) with automated white blood cell (WBC) differential - 03/26/18 13:00 Blood leukocytes automated count (number/volume) 5.4 10*3/uL 4.3-11.0 Blood erythrocytes automated count (number/volume) 4.80 10*6/uL 4.35-5.85 Venous blood hemoglobin measurement (mass/volume) 14.7 g/dL 11.5-16.0 Blood hematocrit (volume fraction) 43 % 35-52 Automated erythrocyte mean corpuscular volume 90 [foz_us] 80-99 Automated erythrocyte mean corpuscular hemoglobin (mass per erythrocyte) 31 pg 25-34 Automated erythrocyte mean corpuscular hemoglobin concentration measurement ( mass/volume) 34 g/dL 32-36 Automated erythrocyte distribution width ratio 12.4 % 10.0-14.5 Automated blood platelet count (count/volume) 186 10*3/uL 130-400 Automated blood platelet mean volume measurement 10.5 [foz_us] 7.4-10.4 Automated blood neutrophils/100 leukocytes 75 % 42-75 Automated blood lymphocytes/100 leukocytes 16 % 12-44 Blood monocytes/100 leukocytes 9 % 0-12 Automated blood eosinophils/100 leukocytes 0 % 0-10 Automated blood basophils/100 leukocytes 0 % 0-10 Blood neutrophils automated count (number/volume) 4.1 10*3 1.8-7.8 Blood lymphocytes automated count (number/volume) 0.9 10*3 1.0-4.0 Blood monocytes automated count (number/volume) 0.5 10*3 0.0-1.0 Automated eosinophil count 0.0 10*3/uL 0.0-0.3 Automated blood basophil count (count/volume) 0.0 10*3/uL 0.0-0.1 Comprehensive metabolic panel - 03/26/18 13:00 Serum or plasma sodium measurement (moles/volume) 138 mmol/L 135-145 Serum or plasma potassium measurement (moles/volume) 3.5 mmol/L 3.6-5.0 Serum or plasma chloride measurement (moles/volume) 103 mmol/L 98-107 Carbon dioxide 23 mmol/L 21-32 Serum or plasma anion gap determination (moles/volume) 12 mmol/L 5-14 Serum or plasma urea nitrogen measurement (mass/volume) 13 mg/dL 7-18 Serum or plasma creatinine measurement (mass/volume) 0.80 mg/dL 0.60-1.30 Serum or plasma urea nitrogen/creatinine mass ratio 16 NRG Serum or plasma creatinine measurement with calculation of estimated glomerular filtration rate > NRG Serum or plasma glucose measurement (mass/volume) 90 mg/dL 70-105 Serum or plasma calcium measurement (mass/volume) 9.5 mg/dL 8.5-10.1 Serum or plasma total bilirubin measurement (mass/volume) 0.8 mg/dL 0.1-1.0 Serum or plasma alkaline phosphatase measurement (enzymatic activity/volume) 69 U/L 40-136 Serum or plasma aspartate aminotransferase measurement (enzymatic activity/ volume) 18 U/L 5-34 Serum or plasma alanine aminotransferase measurement (enzymatic activity/volume ) 17 U/L 0-55 Serum or plasma protein measurement (mass/volume) 7.6 g/dL 6.4-8.2 Serum or plasma albumin measurement (mass/volume) 4.4 g/dL 3.2-4.5 CALCIUM CORRECTED 9.2 mg/dL 8.5-10.1 Lipase - 03/26/18 13:00 Lipase 18 U/L 8-78 Serum or plasma choriogonadotropin ( test) detection - 03/26/18 13:10 Serum or plasma choriogonadotropin ( test) detection NEGATIVE NEGATIVE Complete urinalysis with reflex to culture - 03/26/18 15:03 Urine color determination ANDRES NRG Urine clarity determination SLIGHTLY CLOUDY NRG Urine pH measurement by test strip 5 5-9 Specific gravity of urine by test strip 1.025 1.016- 1.022 Urine protein assay by test strip, semi-quantitative 2+ NEGATIVE Urine glucose detection by automated test strip NEGATIVE NEGATIVE Erythrocytes detection in urine sediment by light microscopy 5+ NEGATIVE Urine ketones detection by automated test strip 1+ NEGATIVE Urine nitrite detection by test strip NEGATIVE NEGATIVE Urine total bilirubin detection by test strip 1+ NEGATIVE Urine urobilinogen measurement by automated test strip (mass/volume) 1 mg/dL NORMAL Urine leukocyte esterase detection by dipstick 1+ NEGATIVE Automated urine sediment erythrocyte count by microscopy (number/high power field) [HPF] NRG Automated urine sediment leukocyte count by microscopy (number/high power field ) [HPF] NRG Bacteria detection in urine sediment by light microscopy MODERATE NRG Squamous epithelial cells detection in urine sediment by light microscopy 5-10 NRG Crystals detection in urine sediment by light microscopy NONE NRG Casts detection in urine sediment by light microscopy NONE NRG Mucus detection in urine sediment by light microscopy LARGE NRG Complete urinalysis with reflex to culture NO NRG Encounters ACCT No. Visit Date/Time Discharge Status Pt. Type Provider Facility Loc./Unit Complaint [id number] 07/19/2014 15:13:00 07/19/2014 23:59:59 CLS Outpatient ELIZABETH LEIVA MD [id number] 07/06/2014 16:00:00 07/06/2014 23:59:59 CLS Outpatient ELIZABETH LEIVA MD [id number] 06/22/2014 15:18:00 06/22/2014 23:59:59 CLS Outpatient ELIZABETH LEIVA MD [id number] 03/21/2014 16:30:00 03/21/2014 23:59:59 CLS Outpatient ELIZABETH LEIVA MD [id number] 02/28/2014 16:43:00 02/28/2014 23:59:59 CLS Outpatient ELIZABETH LEIVA MD [id number] 04/20/2013 16:12:00 04/20/2013 23:59:59 CLS Outpatient LUKE MIRANDA APRN [id number] 02/28/2013 17:21:00 02/28/2013 23:59:59 CLS Outpatient SWAPNA MILLER DO [id number] 05/13/2012 16:42:00 05/13/2012 23:59:59 CLS Outpatient ELIZABETH LEIVA MD [id number] 10/15/2011 14:31:00 10/15/2011 23:59:59 CLS Outpatient [id number] 11/22/2012 16:38:00 Document Registration [id number] 11/04/2012 11:13:00 Document Registration [id number] 09/21/2012 09:17:00 Document Registration [id number] 09/17/2012 16:24:00 Document Registration [id number] 07/07/2012 16:43:00 Document Registration [id number] 04/13/2012 19:22:54 RECURRING [id number] 03/26/2018 12:28:00 03/26/2018 15:51:00 DIS Emergency FLORENCIA MEREDITH APRN [facility] ER VOMITING;ABD PAIN [id number] 09/08/2017 16:08:00 09/08/2017 17:45:00 DIS Outpatient PRANAV JAQUEZ, BENNY Ayers [facility] SDC VOLUME DEPLETION,COUGH, NAUSEA,DOWELL [id number] 12/03/2012 16:21:00 12/09/2012 13:46:00 DIS Outpatient [id number] 09/17/2012 17:42:00 09/17/2012 23:59:59 CLS Outpatient [id number] 08/19/2012 15:17:00 08/19/2012 15:57:00 DIS Outpatient [id number] 07/10/2018 01:20:00 ACT Emergency BRIAN JAQUEZ, YASMINE Ayers [facility] ER HEAD PAIN
[2018-07-10] MEDS ORDERED: diphenhydrAMINE 50 MG/ML INJ (BENADRYL) IV STA (01:31)
[2018-07-10] MEDS ORDERED: PROMETHAZINE INJ 25 MG/ML (PHENERGAN) AMP IVP STA (01:31)
[2018-07-10] MEDS ORDERED: KETOROLAC 30 MG/ML VIAL IVP STA (01:31)
[2018-07-10] MEDS ORDERED: NS IV 1000 ML 1,000 ML IV STA (01:31)
[2018-07-10 01:37] LABS: BASOPHILS % (AUTO) 0 % (0-10); EOSINOPHILS # (AUTO) 0.1 10^3/uL (0.0-0.3); EOSINOPHILS % (AUTO) 2 % (0-10); HEMATOCRIT 38 % (35-52); HEMOGLOBIN 13.4 G/DL (11.5-16.0); LYMPHOCYTES # (AUTO) 1.8 X 10^3 (1.0-4.0); LYMPHOCYTES % (AUTO) 28 % (12-44); MEAN CORPUSCULAR HEMOGLOBIN 32 PG (25-34); MEAN CORPUSCULAR HGB CONC 35 G/DL (32-36); MEAN CORPUSCULAR VOLUME 89 FL (80-99); MEAN PLATELET VOLUME 10.1 FL (7.4-10.4); MONOCYTES # (AUTO) 0.4 X 10^3 (0.0-1.0); MONOCYTES % (AUTO) 6 % (0-12); NEUTROPHILS # (AUTO) 4.3 X 10^3 (1.8-7.8); NEUTROPHILS % (AUTO) 64 % (42-75); PLATELET COUNT 212 10^3/uL (130-400); WHITE BLOOD COUNT 6.7 10^3/uL (4.3-11.0)
--- NOTE | 2018-07-10 01:43 | ED Headache ---
General Chief Complaint: Head/Cervical Problems Stated Complaint: HEAD PAIN Source: patient, family Exam Limitations: no limitations History of Present Illness Date Seen by Provider: Jul 10, 2018 Time Seen by Provider: 01:23 Initial Comments Here with report of gradually worsening headache that started yesterday afternoon and progressed to 7 out of 10 where it is currently states that it's frontal and radiates down to the posterior aspect. Does have nausea and vomiting and photophobia. Denies fever or chills. Has recently had upper respiratory illness over the last week. 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) Patient Home Medication List Home Medication List Reviewed: Yes Review of Systems Review of Systems Constitutional: see HPI; No chills, No fever Eyes: Denies Blurred Vision; Photophobia Ears, Nose, Mouth, Throat: no symptoms reported Respiratory: no symptoms reported Cardiovascular: no symptoms reported Gastrointestinal: nausea, vomiting Genitourinary: no symptoms reported (IM and patient deny the work) : No LMP: Jul 09, 2018 Musculoskeletal: no symptoms reported Skin: no symptoms reported All Other Systems Reviewed Negative Unless Noted: Yes Past Pgdhmyt-Tauyvh-Rhzuew Hx Past Med/Social Hx: Reviewed Nursing Past Med/Soc Hx Patient Social History Alcohol Use: Denies Use Recreational Drug Use: No Smoking Status: Never a Smoker Recent Foreign Travel: No Contact w/Someone Who Travel: No Recent Hopitalizations: No Seasonal Allergies Seasonal Allergies: No Past Medical History Surgeries: Yes (HEART ABLASION, TUBES IN EARS.) Respiratory: No Cardiac: Yes ([id number] (HAD AN ABLASION)) Neurological: No Genitourinary: No Gastrointestinal: No Musculoskeletal: No HEENT: No Cancer: No Anxiety, Depression Family Medical History Reviewed Nursing Family Hx Physical Exam Vital Signs Vital Signs - First Documented 07/10/18 01:25 Temp 96.9 Pulse 97 Resp 18 B/P (MAP) 125/92 O2 Delivery Room Air Capillary Refill : Height, Weight, BMI Height: 5'7.00" Weight: 130lbs. 0.0oz. 58.166934ng; 14.06 BMI Method:Stated General Appearance: WD/WN HEENT: PERRL/EOMI, pharynx normal Neck: full range of motion, supple Cardiovascular: regular rate, rhythm, no murmur Respiratory: lungs clear, normal breath sounds Gastrointestinal: non tender, soft Back: normal inspection, no CVA tenderness, no vertebral tenderness Extremities: non-tender, normal inspection Psychiatric: alert, oriented x 3 Crainal Nerves: normal hearing, normal speech, PERRL Coordination/Gait: normal gait Motor/Sensory: no motor deficit, no sensory deficit Skin: normal color, warm/dry Progress/Results/Core Measures Results/Orders Lab Results Laboratory Tests Test 07/10/18 01:30 Range/Units White Blood Count 6.7 4.3-11.0 10^3/uL Red Blood Count 4.23 L 4.35-5.85 10^6/uL Hemoglobin 13.4 11.5-16.0 G/DL Hematocrit 38 35-52 % Mean Corpuscular Volume 89 80-99 FL Mean Corpuscular Hemoglobin 32 25-34 PG Mean Corpuscular Hemoglobin Concent 35 32-36 G/DL Red Cell Distribution Width 12.0 10.0-14.5 % Platelet Count 212 130-400 10^3/uL Mean Platelet Volume 10.1 7.4-10.4 FL Neutrophils (%) (Auto) 64 42-75 % Lymphocytes (%) (Auto) 28 12-44 % Monocytes (%) (Auto) 6 0-12 % Eosinophils (%) (Auto) 2 0-10 % Basophils (%) (Auto) 0 0-10 % Neutrophils # (Auto) 4.3 1.8-7.8 X 10^3 Lymphocytes # (Auto) 1.8 1.0-4.0 X 10^3 Monocytes # (Auto) 0.4 0.0-1.0 X 10^3 Eosinophils # (Auto) 0.1 0.0-0.3 10^3/uL Basophils # (Auto) 0.0 0.0-0.1 10^3/uL Sodium Level 137 135-145 MMOL/L Potassium Level 3.4 L 3.6-5.0 MMOL/L Chloride Level 105 98-107 MMOL/L Carbon Dioxide Level 22 21-32 MMOL/L Anion Gap 10 5-14 MMOL/L Blood Urea Nitrogen 13 7-18 MG/DL Creatinine 0.73 0.60-1.30 MG/DL Estimat Glomerular Filtration Rate > 60 BUN/Creatinine Ratio 18 Glucose Level 113 H 70-105 MG/DL Calcium Level 9.6 8.5-10.1 MG/DL Corrected Calcium 9.3 8.5-10.1 MG/DL Total Bilirubin 0.4 0.1-1.0 MG/DL Aspartate Amino Transf (AST/SGOT) 15 5-34 U/L Alanine Aminotransferase (ALT/SGPT) 17 0-55 U/L Alkaline Phosphatase 63 40-136 U/L C-Reactive Protein High Sensitivity 0.03 0.00-0.50 MG/DL Total Protein 7.2 6.4-8.2 GM/DL Albumin 4.4 3.2-4.5 GM/DL Serum Test, Qualitative NEGATIVE NEGATIVE My Orders Orders - YASMINE TORRES MD Cbc With Automated Diff (07/10/18 01:31) Comprehensive Metabolic Panel (07/10/18 01:31) Hs C Reactive Protein (07/10/18 01:31) Promethazine Injection (Phenergan Injec (07/10/18 01:31) Ns Iv 1000 Ml (Sodium Chloride 0.9%) (07/10/18 01:31) Ed Iv/Invasive Line Start (07/10/18 01:31) Diphenhydramine Injection (Benadryl Inje (07/10/18 01:31) Ketorolac Injection (Toradol Injection) (07/10/18 01:31) Hcg,Qualitative Serum (07/10/18 01:31) Dexamethasone Injection (Decadron Inject (07/10/18 02:30) Medications Given in ED Current Medications Medications Dose Ordered Sig/Katia Route Start Time Stop Time Status Last Admin Dose Admin Dexamethasone Sodium Phosphate 10 mg ONCE ONCE IV 07/10/18 02:30 07/10/18 02:31 DC 07/10/18 02:29 10 MG Vital Signs/I&O 07/10/18 01:25 Temp 96.9 Pulse 97 Resp 18 B/P (MAP) 125/92 O2 Delivery Room Air Progress Progress Note : Progress Note Seen and evaluated. IV, labs, normal saline 1 L bolus, Toradol 30 mg IV, Benadryl 50 mg IV and Phenergan 25 mg IV ordered. Monitor patient. 0230: Pain down to 5 out of 10. Decadron 10 mg IV ordered. 0300: Overall much improved and now 2 out of 10 on headache. She believes this is tolerable home and is okay going home. Labs reviewed and showed no significant findings currently. Discharged home with return precautions. Patient verbalize understanding instructions and agreement with plan Departure Impression Primary Impression: Migraine Qualified Codes: G43.009 - Migraine without aura, not intractable, without status migrainosus Disposition: HOME, SELF-CARE Condition: Improved Departure-Patient Inst. Decision time for Depature: 02:59 Referrals: BENNY ROCK MD (PCP/Family) Primary Care Physician Patient Instructions: Migraine Headache (DC) Add. Discharge Instructions: All discharge instructions reviewed with patient and/or family. Voiced understanding. Drink plenty of fluids and get plenty of rest. Follow this week for recheck and further evaluation as needed. Return for worse pain, fever, vomiting, weakness, breathing problems or other concerns as needed. You may take ibuprofen 600 mg every 8 hours as needed for pain. You may take Tylenol/acetaminophen 1000 mg every 8 hours as needed for pain. YASMINE TORRES MD Jul 10, 2018 01:43
[2018-07-10 01:56] LABS: ALANINE AMINOTRANSFERASE 17 U/L (0-55); ALBUMIN 4.4 GM/DL (3.2-4.5); ALKALINE PHOSPHATASE 63 U/L (40-136); BILIRUBIN,TOTAL 0.4 MG/DL (0.1-1.0); BUN/CREATININE RATIO 18; CALCIUM 9.6 MG/DL (8.5-10.1); CARBON DIOXIDE 22 MMOL/L (21-32); CHLORIDE 105 MMOL/L (98-107); CREATININE SERUM 0.73 MG/DL (0.60-1.30); GFR ESTIMATED > 60; GLUCOSE 113 MG/DL (70-105); POTASSIUM 3.4 MMOL/L (3.6-5.0); SODIUM 137 MMOL/L (135-145); TOTAL PROTEIN 7.2 GM/DL (6.4-8.2)
[2018-07-10] MEDS ORDERED: DEXAMETHASONE 10 MG/ML (DECADRON) 1 ML VIAL IV ONE (02:30)
== END 2018-07-10 03:08 | disposition home or self-care (01) ==
LOC: EDUNIT# 01:18 → ER 01:20
DX: G43.909 Migraine, unspecified, not intractable, without status migrainosus (principal); F41.9 Anxiety disorder, unspecified; F32.9 Major depressive disorder, single episode, unspecified; Z88.8 Allergy status to other drugs, medicaments and biological substances; Z96.22 Myringotomy tube(s) status
CPT/HCPCS: 36415; 80053; 84703; 85025; 86141

== ENCOUNTER → 2019-03-15 | Outpatient (CLI) | payer BC ==
--- NOTE | 2019-03-15 15:38 | Diagnostic Imaging Report ---
INDICATION: Right breast nodule. TECHNIQUE/FINDINGS: Sonographic interrogation of the area of nodule at the 8-9 o'clock location of the right breast was performed. No sonographic abnormality is identified. No solid or cystic mass is detected. IMPRESSION: No sonographic abnormality is detected. ACR BI-RADS Category 1: Negative. Dictated by: Dictated on workstation # [id number]
== END ==
LOC: RAD 12:34
PROVIDERS: ATTEND Obstetrics & Gynecology
DX: N63.13 Unspecified lump in the right breast, lower outer quadrant (principal)
CPT/HCPCS: 76641

== ENCOUNTER → 2019-05-10 | Outpatient (CLI) | payer BC ==
--- NOTE | 2019-05-10 14:14 | Diagnostic Imaging Report ---
PROCEDURE: CT head without contrast. TECHNIQUE: Multiple contiguous axial images were obtained through the brain without the use of intravenous contrast. Auto Exposure Controls were utilized during the CT exam to meet ALARA standards for radiation dose reduction. INDICATION: Nausea and dizziness after head trauma. COMPARISON: Comparison made with prior examination from 02/03/2007. FINDINGS: The ventricles and sulci are within normal limits. There is no hydrocephalus or cerebral edema. There is no midline shift or mass effect. There is no intracranial mass, hemorrhage, or extra-axial fluid collection. The visualized paranasal sinuses and mastoid air cells are clear. There are no regional areas of decreased attenuation appreciated to suggest an acute CVA. IMPRESSION: No acute intracranial abnormality. Dictated by: Dictated on workstation # [id number]
== END ==
LOC: RAD 13:50
PROVIDERS: ATTEND Nurse Practitioner
DX: R51 Headache (principal)
CPT/HCPCS: 70450

== ENCOUNTER → 2019-11-10 | Outpatient (CLI) | payer BC | LOC: CARD 11:01 | PROVIDERS: ATTEND Nurse Practitioner Psychiatric/Mental Health | DX: F41.9 Anxiety disorder, unspecified (principal); Z79.899 Other long term (current) drug therapy | CPT/HCPCS: 93005 ==

== ENCOUNTER → 2021-08-06 | Outpatient (CLI) | payer BC, OTHER ==
--- NOTE | 2021-08-06 13:59 | Diagnostic Imaging Report ---
EXAMINATION: CT head without contrast. TECHNIQUE: Multiple contiguous axial images were obtained through the brain without the use of intravenous contrast. All CT scans use one or more of the following dose optimizing techniques: automated exposure control, MA and/or KvP adjustment based on patient size and exam type or iterative reconstruction. HISTORY: Headache. Nausea. Tree branch fell on top of the head. COMPARISON: 05/10/2019. FINDINGS: No large acute territorial ischemia, mass, or hemorrhage. No midline shift or mass effect. The ventricles, cortical sulci, and basilar cisterns are patent and unremarkable. The orbits are normal. Paranasal sinuses are normal. Mastoid air cells are clear. No soft tissue abnormality is seen. No osseus lesions or fractures are seen. IMPRESSION: 1. No large acute territorial ischemia, mass, or hemorrhage. Dictated by: Dictated on workstation # [id number]
== END ==
LOC: RAD 12:00
PROVIDERS: ATTEND Physician Assistant
DX: R51.9 Headache, unspecified (principal); R11.0 Nausea
CPT/HCPCS: 70450; 84703

== ENCOUNTER → 2022-04-29 | Outpatient (CLI) | payer BC, OTHER ==
[2022-04-29 12:23] LABS: BASOPHILS % (AUTO) 1 % (0-10); EOSINOPHILS # (AUTO) 0.1 10^3/uL (0.0-0.3); EOSINOPHILS % (AUTO) 2 % (0-10); HEMATOCRIT 38 % (35-52); HEMOGLOBIN 13.1 g/dL (11.5-16.0); LYMPHOCYTES # (AUTO) 1.3 10^3/uL (1.0-4.0); LYMPHOCYTES % (AUTO) 23 % (12-44); MEAN CORPUSCULAR HEMOGLOBIN 31 pg (25-34); MEAN CORPUSCULAR HGB CONC 34 g/dL (32-36); MEAN CORPUSCULAR VOLUME 92 fL (80-99); MEAN PLATELET VOLUME 10.5 fL (9.0-12.2); MONOCYTES # (AUTO) 0.4 10^3/uL (0.0-1.0); MONOCYTES % (AUTO) 7 % (0-12); NEUTROPHILS # (AUTO) 3.7 10^3/uL (1.8-7.8); NEUTROPHILS % (AUTO) 67 % (42-75); PLATELET COUNT 196 10^3/uL (130-400); WHITE BLOOD COUNT 5.6 10^3/uL (4.3-11.0)
[2022-04-29 12:43] LABS: ALANINE AMINOTRANSFERASE 16 U/L (0-55); ALKALINE PHOSPHATASE 58 U/L (40-136); BILIRUBIN,TOTAL 0.5 MG/DL (0.1-1.0); BUN/CREATININE RATIO 14; CALCIUM 9.2 MG/DL (8.5-10.1); CARBON DIOXIDE 21 MMOL/L (21-32); CHLORIDE 107 MMOL/L (98-107); CREATININE SERUM 0.71 MG/DL (0.60-1.30); GFR ESTIMATED 122; GLUCOSE 85 MG/DL (70-105); POTASSIUM 3.7 MMOL/L (3.6-5.0); SODIUM 138 MMOL/L (135-145)
== END ==
LOC: CARD 12:30
PROVIDERS: ATTEND Physician Assistant
DX: R07.89 Other chest pain (principal)
CPT/HCPCS: 36415; 80053; 84484; 85025; 93005

== ENCOUNTER 2022-05-07 16:15 | Emergency (ER) | payer BC ==
[~2022-05-07] VITALS: Ht 170.2 cm; Wt 65.3 kg
--- NOTE | 2022-05-07 16:47 | ED GU-Female ---
General Chief Complaint: OB < 20 WEEKS Stated Complaint: 5 WEEKS , BLEEDING Nursing Triage Note: PT AMB TO RM 9 WITH COMPLAINT OF ABD CRAMPING AND BLEEDING. STATES SHE IS APPROX 5 WEEKS , LMP 04/01/2022. STATES "PERIOD LIKE" BLEEDING STARTED TODAY. Source: patient Exam Limitations: no limitations (CHELY BRYAN MD) History of Present Illness Date Seen by Provider: May 07, 2022 Time Seen by Provider: 16:36 Initial Comments Patient is a 21-year-old female who presents to the emergency department today with a chief complaint of suprapubic cramping, vaginal bleeding light to moderate in nature. She has had a positive test a week ago. Her cramping and bleeding started today. Currently the cramping is very mild. She states it is almost heavy enough to need a pad. She denies any dysuria, urgency or frequency. No abnormal vaginal discharge. No diarrhea. No fevers or chills. She is a G1, P0. She plans on following up with Dr. Jimenez in [place]. She will need [employer] [address] [employer] [address] follow-up as she has factor V Leiden disease. She is not currently on Lovenox. Currently followed at [facility] by Dr. Kuo. She has not taken anything for the cramping. Patient states that she believes her last normal menstrual period was April 01, 2022 however it was very short and light lasting only 3 days. Menstrual cycle prior to that was sometime at the end of January beginning of February. She normally keeps track on an sherri however that cycle was not recorded correctly. 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) Patient Home Medication List Home Medication List Reviewed: Yes (CHELY BRYAN MD) Citalopram Hydrobromide (Citalopram HBr) 20 Mg Tablet, (Reported) Entered as Reported by: UBALDO HERNANDEZ on 03/26/18 9513 Norethindrone (Norlyda) 0.35 Mg Tablet, (Reported) Entered as Reported by: UBALDO HERNANDEZ on 03/26/18 6412 Review of Systems Review of Systems Constitutional: see HPI Respiratory: no symptoms reported Cardiovascular: no symptoms reported Gastrointestinal: abdominal pain Genitourinary: denies burning, denies discharge : Yes Musculoskeletal: no symptoms reported Skin: no symptoms reported Psychiatric/Neurological: No Symptoms Reported (CHELY BRYAN MD) Past Paezjir-Otrfih-Uiolid Hx Patient Social History Tobacco Use?: No Use of E-Cig and/or Vaping dev: No Substance use?: No Alcohol Use?: No Pt feels they are or have been: No (CHELY BRYAN MD) Seasonal Allergies Seasonal Allergies: No (CHELY BRYAN MD) Past Medical History Surgeries: Yes (HEART ABLASION, TUBES IN EARS) Respiratory: No Cardiac: Yes ([id number]-BAYBYSYAL-VNEJL (HAD AN ABLASION)) Neurological: No Genitourinary: No Gastrointestinal: No Musculoskeletal: No HEENT: No Cancer: No Psychosocial: Yes Anxiety, Depression (CHELY BRYAN MD) Physical Exam Vital Signs Vital Signs - First Documented 05/07/22 16:25 Temp 37.0 Pulse 83 Resp 20 B/P (MAP) 132/83 (99) Pulse Ox 100 O2 [facility] Vital Signs Capillary Refill : Less Than 3 Seconds (CHELY BRYAN MD) Height, Weight, BMI Height: 5'7.00" Weight: 130lbs. 0.0oz. 58.510103rp; 22.00 BMI Method:Stated General Appearance: WD/WN, no apparent distress HEENT: PERRL/EOMI Cardiovascular: regular rate, rhythm Respiratory: lungs clear, normal breath sounds, no respiratory distress, no a ccessory muscle use Gastrointestinal: normal bowel sounds, soft, tenderness (suprapubic) Extremities: normal range of motion, non-tender, normal inspection Neurologic/Psychiatric: alert, normal mood/affect, oriented x 3 Skin: normal color, warm/dry (CHELY BRYAN MD) Progress/Results/Core Measures Suspected Sepsis SIRS Temperature: Pulse: 83 Respiratory Rate: 20 Blood Pressure 132 /83 Mean: 99 (CHELY BRYAN MD) Results/Orders Lab Results Laboratory Tests Test 05/07/22 17:18 05/07/22 17:45 Range/Units Urine Color RED H Urine Clarity TURBID Urine pH 6.5 5-9 Urine Specific [place] >=1.030 1.016-1.022 Urine Protein 2+ H NEGATIVE Urine Glucose (UA) NEGATIVE NEGATIVE Urine Ketones TRACE H NEGATIVE Urine Nitrite POSITIVE H NEGATIVE Urine Bilirubin NEGATIVE NEGATIVE Urine Urobilinogen 1.0 < = 1.0 MG/DL Urine Leukocyte Esterase TRACE H NEGATIVE Urine RBC (Auto) 3+ H NEGATIVE Urine RBC TNTC H /HPF Urine WBC 5-10 H /HPF Urine Squamous Epithelial Cells 0-2 /HPF Urine Crystals NONE /LPF Urine Bacteria TRACE /HPF Urine Casts NONE /LPF Urine Mucus SMALL H /LPF Urine Culture Indicated YES White Blood Count 8.6 4.3-11.0 10^3/uL Red Blood Count 4.28 3.80-5.11 10^6/uL Hemoglobin 13.3 11.5-16.0 g/dL Hematocrit 39 35-52 % Mean Corpuscular Volume 90 80-99 fL Mean Corpuscular Hemoglobin 31 25-34 pg Mean Corpuscular Hemoglobin Concent 34 32-36 g/dL Red Cell Distribution Width 12.1 10.0-14.5 % Platelet Count 205 130-400 10^3/uL Mean Platelet Volume 11.2 9.0-12.2 fL Immature Granulocyte % (Auto) 0 % Neutrophils (%) (Auto) 69 42-75 % Lymphocytes (%) (Auto) 22 12-44 % Monocytes (%) (Auto) 7 0-12 % Eosinophils (%) (Auto) 2 0-10 % Basophils (%) (Auto) 1 0-10 % Neutrophils # (Auto) 6.0 1.8-7.8 10^3/uL Lymphocytes # (Auto) 1.9 1.0-4.0 10^3/uL Monocytes # (Auto) 0.6 0.0-1.0 10^3/uL Eosinophils # (Auto) 0.2 0.0-0.3 10^3/uL Basophils # (Auto) 0.1 0.0-0.1 10^3/uL Immature Granulocyte # (Auto) 0.0 0.0-0.1 10^3/uL Human Chorionic Gonadotropin, Quant 11084 H <5 MIU/ML (ERNESTINE,FELIZ L DO) My Orders Orders - FELIZ SINHA DO Rho(D) Immune Globulin (Rhophylac) (05/07/22 19:15) Cephalexin Capsule (Keflex Capsule) (05/07/22 19:14) (FELIZ SINHA DO) Vital Signs/I&O 05/07/22 16:25 Temp 37.0 Pulse 83 Resp 20 B/P (MAP) 132/83 (99) Pulse Ox 100 O2 Delivery Room Air (FELIZ SINHA DO) Vital Signs/I&O Capillary Refill : Less Than 3 Seconds (CHELY BRYAN MD) Blood Pressure Mean: 99 Progress Note : Time: 17:07 Progress Note Patient seen and evaluated by me, 21-year-old female G1 with cramping and bleeding. Approximately 5 to 6 weeks . Evaluation today includes physical exam, CBC, beta quant, urinalysis and type and Rh. Physical exam shows mild suprapubic tenderness. No peritoneal signs on exam. No concern for acute surgical process. She does state that she has had a little bit more left-sided cramping. Differential diagnosis based on history and physical exam, miscar riage, ectopic , blighted ovum. Ocssa-lb-fcnu ultrasound used to attempt to identify an IUP. I did see an intrauterine with obvious yolk sac. I was not able to observe cardiac activity. It is likely too early for this. Labs pending at this time. Vital signs are stable. Patient is in no acute distress (CHELY BRYAN MD) Departure Communication (Admissions) Handoff obtained from off going provider that 1730. Patient's RhoGAM and labs otherwise pending at that time. Her hCG level is 27,268. Blood type is A-. RhoGAM has been ordered. She does have bacteriuria with leuk esterase and nitrites. We will go ahead and treat her with Keflex p.o. though she is asymptomatic she is not having any significant amount of vaginal bleeding at this time. Previous provider reported bedside ultrasound showed likely pole. No obvious heartbeat identified at this time however given she is only 5 weeks this is not altogether surprising. She is not having much abdominal pain if any at all at this time. I discussed the potential for miscarriage versus other vaginal bleeding during . She does have factor V Leiden which certainly increases the risk of miscarriage. She has not yet seen Dr. Kuo but she will call her office tomorrow to schedule sooner follow-up and repeat hCG levels which I recommended in about 48 hours. She was given strict return precautions for severe abdominal pain, severe bleeding or if her symptoms change in any way concerning to her. (FELIZ SINHA DO) Impression Primary Impression: Threatened miscarriage in early Disposition: 01 HOME, SELF-CARE Condition: Stable Departure-Patient Inst. Referrals: BENNY ROCK MD (PCP/Family) Primary Care Physician Patient Instructions: Threatened Miscarriage (DC) Add. Discharge Instructions: Drink plenty of fluids to stay well-hydrated. You can take extra strength Tylenol every 6 hours as needed for mild to moderate cramping. If you have worsening pain especially with significantly heavy vaginal bleeding please return to the emergency room for reevaluation. You will need to come back in 48 hours to have repeat lab work done to assess your hormone level. Please take the antibiotics as prescribed until they are gone Please call and follow-up with Dr. Kuo for further evaluation and management. Scripts Cephalexin (Cephalexin) 500 Mg Tablet 500 MG PO BID for 5 Days, #10 TAB Prov: FELIZ SINHA DO 05/07/22 Copy Copies To 1: AYSHA KUO MD, KATHRYN M MD May 07, 2022 16:47 FELIZ SINHA DO May 07, 2022 19:18
[2022-05-07 17:29] LABS: BILIRUBIN,URINE NEGATIVE (NEGATIVE); CLARITY,URINE TURBID; COLOR,URINE RED; GLUCOSE, URINE (UA) NEGATIVE (NEGATIVE); KETONES,URINE TRACE (NEGATIVE); LEUKOCYTE ESTERASE ,URINE TRACE (NEGATIVE); NITRITE,URINE POSITIVE (NEGATIVE); PH,URINE 6.5 (5-9); PROTEIN,URINE 2+ (NEGATIVE)
[2022-05-07 17:45] LABS: RBC,URINE TNTC /HPF
[2022-05-07 17:48] LABS: BACTERIA,URINE TRACE /HPF
[2022-05-07 17:49] LABS: SQUAMOUS EPITHELIAL CELL,UR 0-2 /HPF
[2022-05-07 18:00] LABS: BASOPHILS # (AUTO) 0.1 10^3/uL (0.0-0.1); BASOPHILS % (AUTO) 1 % (0-10); EOSINOPHILS # (AUTO) 0.2 10^3/uL (0.0-0.3); EOSINOPHILS % (AUTO) 2 % (0-10); HEMATOCRIT 39 % (35-52); HEMOGLOBIN 13.3 g/dL (11.5-16.0); LYMPHOCYTES # (AUTO) 1.9 10^3/uL (1.0-4.0); LYMPHOCYTES % (AUTO) 22 % (12-44); MEAN CORPUSCULAR HEMOGLOBIN 31 pg (25-34); MEAN CORPUSCULAR HGB CONC 34 g/dL (32-36); MEAN CORPUSCULAR VOLUME 90 fL (80-99); MEAN PLATELET VOLUME 11.2 fL (9.0-12.2); MONOCYTES # (AUTO) 0.6 10^3/uL (0.0-1.0); MONOCYTES % (AUTO) 7 % (0-12); NEUTROPHILS % (AUTO) 69 % (42-75); PLATELET COUNT 205 10^3/uL (130-400); WHITE BLOOD COUNT 8.6 10^3/uL (4.3-11.0)
[2022-05-07] MEDS ORDERED: CEPHALEXIN 250 MG (KEFLEX) CAP PO STA (19:14)
[2022-05-07] MEDS ORDERED: RHO(D) immune globulin 1,500 UNIT/2 ML (Rhogam/Rhophylac) IM ONE (19:15)
[2022-05-07] MEDS ORDERED: CEPH500T PO (19:18)
[2022-05-07 19:53] VITALS: BP 123/77
== END 2022-05-07 19:55 | disposition home or self-care (01) ==
LOC: EDUNIT# 16:15 → ER 16:17
DX: O20.0 Threatened abortion (principal); Z3A.01 Less than 8 weeks gestation of pregnancy
CPT/HCPCS: 36415; 81000; 84702; 84703; 85025; 86900; 86901; 87088; 96372

== ENCOUNTER 2022-05-09 10:27 | Emergency (ER) | payer BC ==
[~2022-05-09] VITALS: Ht 170 cm; Wt 65.7 kg
[~2022-05-09 10:27] MED LIST changes: +CEPH500T PO
--- NOTE | 2022-05-09 10:53 | ED GU-Female ---
General Chief Complaint: OB < 20 WEEKS Stated Complaint: THREATENED MISCARRIAGE | VAGINAL BLEEDING Nursing Triage Note: PT REPORTS CURRENTLY APPROX 5-6 WEEKS . PT STARTED HAVING VAGINAL BLEEDING SEVERAL DAYS AGO, WAS EVALUATED IN ER 2 DAYS AGO. PT WENT TO OB TODAY FOR REPEAT HCG. PT WAS TOLD SHE WOULD NOT RECEIVED THE RESULT UNTIL THURSDAY. PT REQUESTED REPEAT TEST TO BE PERFORMED TO EXPEDITE RESULTS. Source: patient, old records Exam Limitations: no limitations History of Present Illness Date Seen by Provider: May 09, 2022 Time Seen by Provider: 10:40 Initial Comments This 21-year-old young lady at approximately 6 weeks gestational age presents with pelvic cramping and bleeding. She was seen in this emergency room 2 days ago. Bedside ultrasound was presumptively positive for intrauterine with endometrial sac. No pole or heartbeat was observed. Patient was advised to have 48-hour hCG obtained, which she did at the clinic today. However, she was instructed that results would not be available until next week. She felt she should present to the emergency room for more prompt evaluation and repeat hCG since she was still having symptoms. She passed some clots this morning. She is feeling more fatigued than usual. Bleeding was heavier this morning and has since decreased. She denies any fever. She is presently on Keflex for a urinary tract infection as prescribed from the ER [address] Kuo is her obstetrical provider. She reports history of factor V Leiden. 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) Patient Home Medication List Home Medication List Reviewed: Yes Cephalexin (Cephalexin) 500 Mg Tablet, 500 MG PO BID Prescribed by: FELIZ SINHA MD on 05/07/221917 Citalopram Hydrobromide (Citalopram HBr) 20 Mg Tablet, (Reported) Entered as Reported by: UBALDO HERNANDEZ on 03/26/18 1255 Norethindrone (Norlyda) 0.35 Mg Tablet, (Reported) Entered as Reported by: UBALDO HERNANDEZ on 03/26/18 1255 Review of Systems Review of Systems Constitutional: see HPI EENTM: no symptoms reported Respiratory: no symptoms reported Cardiovascular: no symptoms reported Gastrointestinal: no symptoms reported Genitourinary: see HPI : Yes Musculoskeletal: no symptoms reported Skin: no symptoms reported Psychiatric/Neurological: No Symptoms Reported Endocrine: No Symptoms Reported Hematologic/Lymphatic: See HPI (Factor V Leiden) Past Hqgsget-Moeipq-Uozcwt Hx Patient Social History Tobacco Use?: No Use of E-Cig and/or Vaping dev: No Substance use?: No Alcohol Use?: No Pt feels they are or have been: No Immunizations Up To Date First/Initial COVID19 Vaccinat: DENIES Seasonal Allergies Seasonal Allergies: No Past Medical History Surgeries: Yes (HEART ABLASION, TUBES IN EARS) Cardiac (Cardiac ablation), Ear Surgery (BMT) Respiratory: No Cardiac: Yes ([id number] (HAD AN ABLASION)) Neurological: No : Yes Last Menstrual Period: Apr 01, 2022 Reproductive Disorders: No Genitourinary: No Gastrointestinal: No Musculoskeletal: No HEENT: No Cancer: No Psychosocial: Yes Anxiety, Depression Blood Disorders: Yes (Factor V Leiden) Physical Exam Vital Signs Vital Signs - First Documented 05/09/22 10:30 Temp 36.7 Pulse 98 Resp 18 B/P (MAP) 135/91 (106) Pulse Ox 99 O2 Delivery Room Air Capillary Refill : Height, Weight, BMI Height: 5'7.00" Weight: 130lbs. 0.0oz. 58.044194ql; 22.00 BMI Method:Stated General Appearance: WD/WN, no apparent distress HEENT: normal ENT inspection Neck: normal inspection Cardiovascular: regular rate, rhythm, no edema, no murmur Respiratory: lungs clear, normal breath sounds, no respiratory distress Gastrointestinal: non tender, soft Extremities: normal inspection, no pedal edema Neurologic/Psychiatric: no motor/sensory deficits, alert, normal mood/affect, oriented x 3 Skin: normal color Progress/Results/Core Measures Suspected Sepsis SIRS Temperature: Pulse: 98 Respiratory Rate: 18 Laboratory Tests 05/09/22 11:05: White Blood Count 6.9 Blood Pressure 135 /91 Mean: 106 Laboratory Tests 05/09/22 11:05: Platelet Count 220 Results/Orders Lab Results Laboratory Tests Test 05/09/22 11:05 Range/Units White Blood Count 6.9 4.3-11.0 10^3/uL Red Blood Count 4.08 3.80-5.11 10^6/uL Hemoglobin 12.8 11.5-16.0 g/dL Hematocrit 37 35-52 % Mean Corpuscular Volume 90 80-99 fL Mean Corpuscular Hemoglobin 31 25-34 pg Mean Corpuscular Hemoglobin Concent 35 32-36 g/dL Red Cell Distribution Width 11.9 10.0-14.5 % Platelet Count 220 130-400 10^3/uL Mean Platelet Volume 11.0 9.0-12.2 fL Immature Granulocyte % (Auto) 0 % Neutrophils (%) (Auto) 71 42-75 % Lymphocytes (%) (Auto) 20 12-44 % Monocytes (%) (Auto) 7 0-12 % Eosinophils (%) (Auto) 2 0-10 % Basophils (%) (Auto) 1 0-10 % Neutrophils # (Auto) 4.9 1.8-7.8 10^3/uL Lymphocytes # (Auto) 1.4 1.0-4.0 10^3/uL Monocytes # (Auto) 0.5 0.0-1.0 10^3/uL Eosinophils # (Auto) 0.1 0.0-0.3 10^3/uL Basophils # (Auto) 0.0 0.0-0.1 10^3/uL Immature Granulocyte # (Auto) 0.0 0.0-0.1 10^3/uL Human Chorionic Gonadotropin, Quant 41243 H <5 MIU/ML My Orders Orders - CARO TATE MD Cbc With Automated Diff (05/09/22 10:53) Hcg,Quantitative (05/09/22 10:53) Ed Iv/Invasive Line Start (05/09/22 10:53) Us Ob<14 Wks Sngle W/Transvag (05/09/22 12:17) Vital Signs/I&O 05/09/22 05/09/22 10:30 13:57 Temp 36.7 Pulse 98 83 Resp 18 18 B/P (MAP) 135/91 (106) 108/68 Pulse Ox 99 96 O2 Delivery Room Air Capillary Refill : Blood Pressure Mean: 106 Progress Note : Progress Note Patient has Rh- blood type and received RhoGAM during her last ER visit. She continues to have symptoms of cramping and bleeding. hCG level was obtained and did demonstrate some increase. Therefore, it is prudent to obtain an official ultrasound to document status of intrauterine . Ultrasound was obtained and revealed intrauterine gestational sac without heartbeat. There was an avascular complex area near the gestational sac that could represent bleed. Follow-up was recommended. Viable versus demise is yet to be determined. Patient was advised to follow-up with the clinic next week for repeat a hCG and possible ultrasound. Dr. Kuo was informed of patient's status as a courtesy. Diagnostic Imaging Diagonstic Imaging: Ultrasound Plain Films/CT/US/NM/MRI: pelvis Comments Ultrasound was discussed with the radiologic technician and report reviewed as below: NAME: JOELLEN HOLLAND [facility] REC#: [id number] PT STATUS: DEP ER : 2000 PHYSICIAN: CARO TATE MD ADMIT DATE: 05/09/22/ER Signed Date of Exam:05/09/22 US OB<14 WKS SNGLE W/TRANSVAG US OB<14 WKS SNGLE W/TRANSVAG INDICATION: Pelvic pain and bleeding. Positive test. COMPARISON: None available. TECHNIQUE: Transabdominal and transvaginal sonographic imaging of the pelvis was performed. FINDINGS: There is a gestational sac with a normal ovoid morphology and appropriate position in the upper uterus. There is a yolk sac present within the gestational sac. However, no pole/embryo is seen at this time. Mean sac diameter is 1.59 cm given an estimated gestational age of 6 weeks and 3 days. A heterogeneous area is present in the uterine body adjacent to the gestational sac, and could represent hemorrhage or fibroid. This encompasses less than 50% of the gestational sac. Both ovaries are identified and normal in appearance. Blood flow is seen in both ovaries by color Doppler imaging. IMPRESSION: 1. Intrauterine gestational sac has a yolk sac but no identified pole. This could represent an early normal , and follow-up serial beta-hCG is suggested. 2. Complex avascular area adjacent to the gestational sac may represent a fibroid versus subchorionic hemorrhage. Follow-up pelvic ultrasound may be warranted if patient has persistent vaginal bleeding. Dictated by: Dictated on workstation # [id number] Dict: 05/09/22 1337 Trans: 05/09/22 1418 [id number] Interpreted by: MIGUELITO VARGAS MD Electronically signed by: MIGUELITO VARGAS MD 05/09/22 1418 Departure Impression Primary Impression: Threatened miscarriage in early Disposition: 01 HOME, SELF-CARE Condition: Stable Departure-Patient Inst. Decision time for Depature: 13:42 Referrals: BENNY ROCK MD (PCP/Family) Primary Care Physician Patient Instructions: Bleeding in Early ED Add. Discharge Instructions: Your work-up in the emergency room today did not indicate ectopic . You do have a gestational sac in the uterus, but no heartbeat was appreciated. This may be because the is too early to detect a heart beat. The viability of your is still uncertain. You should follow-up with the clinic next week to have a repeat hCG level and possibly a repeat ultrasound. Please call the clinic to make arrangements. Return to the ER if you have worsening symptoms including escalating pain or hemorrhaging or if you develop new symptoms such as fever. You may take Tylenol (acetaminophen) up to 1000 mg every 6 hours as needed for pain or cramping. All discharge instructions reviewed with patient and/or family. Voiced understanding. Copy Copies To 1: AYSHA KUO MD, JOSHUA T MD May 09, 2022 10:53
[2022-05-09 11:17] LABS: BASOPHILS % (AUTO) 1 % (0-10); EOSINOPHILS # (AUTO) 0.1 10^3/uL (0.0-0.3); EOSINOPHILS % (AUTO) 2 % (0-10); HEMATOCRIT 37 % (35-52); HEMOGLOBIN 12.8 g/dL (11.5-16.0); LYMPHOCYTES # (AUTO) 1.4 10^3/uL (1.0-4.0); LYMPHOCYTES % (AUTO) 20 % (12-44); MEAN CORPUSCULAR HEMOGLOBIN 31 pg (25-34); MEAN CORPUSCULAR HGB CONC 35 g/dL (32-36); MEAN CORPUSCULAR VOLUME 90 fL (80-99); MONOCYTES # (AUTO) 0.5 10^3/uL (0.0-1.0); MONOCYTES % (AUTO) 7 % (0-12); NEUTROPHILS # (AUTO) 4.9 10^3/uL (1.8-7.8); NEUTROPHILS % (AUTO) 71 % (42-75); PLATELET COUNT 220 10^3/uL (130-400); WHITE BLOOD COUNT 6.9 10^3/uL (4.3-11.0)
--- NOTE | 2022-05-09 13:45 | Diagnostic Imaging Report ---
US OB<14 WKS SNGLE W/TRANSVAG INDICATION: Pelvic pain and bleeding. Positive test. COMPARISON: None available. TECHNIQUE: Transabdominal and transvaginal sonographic imaging of the pelvis was performed. FINDINGS: There is a gestational sac with a normal ovoid morphology and appropriate position in the upper uterus. There is a yolk sac present within the gestational sac. However, no pole/embryo is seen at this time. Mean sac diameter is 1.59 cm given an estimated gestational age of 6 weeks and 3 days. A heterogeneous area is present in the uterine body adjacent to the gestational sac, and could represent hemorrhage or fibroid. This encompasses less than 50% of the gestational sac. Both ovaries are identified and normal in appearance. Blood flow is seen in both ovaries by color Doppler imaging. IMPRESSION: 1. Intrauterine gestational sac has a yolk sac but no identified pole. This could represent an early normal , and follow-up serial beta-hCG is suggested. 2. Complex avascular area adjacent to the gestational sac may represent a fibroid versus subchorionic hemorrhage. Follow-up pelvic ultrasound may be warranted if patient has persistent vaginal bleeding. Dictated by: Dictated on workstation # [id number]
[2022-05-09 13:57] VITALS: BP 108/68
== END 2022-05-09 13:57 | disposition home or self-care (01) ==
LOC: EDUNIT# 10:27 → ER 10:29
DX: O20.0 Threatened abortion (principal); Z3A.01 Less than 8 weeks gestation of pregnancy; Z28.310 Unvaccinated for COVID-19
CPT/HCPCS: 36415; 76801; 76817; 84702; 85025